=== PATIENT | male | born 1945 | race Caucasian/White ===

== ENCOUNTER 2017-12-24 17:36 | Inpatient (IN) | payer MEDICARE ==
[~2017-12-24] VITALS: Ht 182.9 cm; Wt 82.6 kg
[~2017-12-24 17:36] MED LIST: ABIL5TAB6 PO; ACIP20TA19 PO; AMBI12.5 PO; ASPI81 PO; FELO2.5T PO; HYZA100T6 PO; LOPR50TA12 PO; LOVA40TA PO; PRIS100T PO; TAB-TAB PO; TIMO0.5S29 EACH EYE; TRAZ100 PO; XANA1TAB PO
[2017-12-24 17:40] VITALS: BP 162/86; PULSE 77; RESP 18; TEMP 98.5; O2SAT 94
[2017-12-24] MEDS ORDERED: SODIUM CHLOR 0.9% 1000 ML INJ 1,000 ML IV ONE (17:52)
[2017-12-24] MEDS ORDERED: RABE1TAB PO (17:57)
[2017-12-24] MEDS ORDERED: FLUO20CA12 PO (17:57)
[2017-12-24] MEDS ORDERED: LOSA100T3 PO (17:57)
[2017-12-24] MEDS ORDERED: ATOR10TA15 PO (17:57)
[2017-12-24] MEDS ORDERED: METO50TA PO (17:57)
[2017-12-24] MEDS ORDERED: TIMO0.2517 EACH EYE (17:57)
[2017-12-24] MEDS ORDERED: ASPI81CH6 CHEW (17:57)
[2017-12-24] MEDS ORDERED: FELO5TAB PO (17:57)
[2017-12-24] MEDS ORDERED: SODIUM CHLORIDE 0.9% FLUSH 10 ML FLUSH IVF PRN (18:00)
[2017-12-24] MEDS ORDERED: LORazepam 2 MG/ML VIAL IVS ONE (18:00)
--- NOTE | 2017-12-24 18:08 | PD ---
HPI Chief Complaint: Seizure Time Seen by Provider: 17:52 Travel History International Travel<30 days: No Contact w/Intl Traveler<30days: No Traveled to known affect area: No History of Present Illness HPI 72-year-old male arrives to the ER complaining of seizure. He arrives by EMS. The patient was seen by his on the ground in the house with a grand mal seizure/tonic clonic seizure activity. Patient reports a normal day today however has lately been very inactive. He reports an attempt to stop taking Xanax 0.5 mg twice daily. He has previously attempted the same once with no withdrawal seizure. He reports drinking alcohol typically daily. In the ER he has no chest pain shortness of breath nausea vomiting fever or chills diaphoresis dizziness headache or acute complaint otherwise. PFSH Past Medical History Arthritis: Yes Anxiety: Yes Depression: Yes Cancer: No Cardiac Catheterization: Yes Cardiovascular Problems: No High Cholesterol: Yes Diabetes: No Diminished Hearing: No Endocrine: No Gastrointestinal Disorders: Yes (GERD) GERD: Yes Genitourinary: No Hepatitis: No Hiatal Hernia: No Hypertension: Yes Immune Disorder: No Implanted Vascular Access Dvce: Yes Musculoskeletal: Yes (CHRONIC BACK PAIN) Neurologic: No Psychiatric: Yes (DEPRESSION, ANXIETY) Reproductive: No Respiratory: Yes (sleep apnea, USES CPAP) Sleep Apnea: Yes (CPAP) Thyroid Disease: No Influenza Vaccination: No Past Surgical History Abdominal Surgery: Yes (APPENDECTOMY, INGUINAL HERNIORRHAPHY) AICD: No Appendectomy: Yes Eye Surgery: Yes (MORIAH. RETINAL REPAIR, BILATERAL CATARACT SURGERY) Joint Replacement: Yes (MORIAH. KNEES, RIGHT HIP) Pacemaker: No Tonsillectomy: Yes Other Surgery: Yes Family History Family Hypercholesterolemia: Yes Social History Alcohol Use: Yes ("WEEKENDS") Tobacco Use: No Substance Use: No Allergies-Medications (Allergen,Severity, Reaction): Coded Allergies: adhesive (Unverified Allergy, Severe, BLISTERING, 06/22/17) tree and shrub pollen (Unverified Allergy, Severe, NASAL CONGESTION, ) POLLEN ALLERGY Reported Meds & Prescriptions Reported Meds & Active Scripts Active Reported Timolol Maleate (Timolol Maleate (Ophth)) 0.25 % Romina 1 Drop EACH EYE BID Aspirin Low Dose (Aspirin) 81 Mg Chew 81 Mg CHEW DAILY Felodipine ER (Felodipine) 5 Mg Agapito 5 Mg PO DAILY Rabeprazole (Rabeprazole Sodium) 20 Mg Tab 20 Mg PO DAILY Losartan-Hydrochlorothiazide 100-12.5 Mg Tab 1 Tab PO DAILY Fluoxetine (Fluoxetine HCl) 20 Mg Capsule 20 Mg PO DAILY Metoprolol Tartrate 50 Mg Tab 50 Mg PO BID Atorvastatin (Atorvastatin Calcium) 10 Mg Tab 10 Mg PO HS Review of Systems Except as stated in HPI: all other systems reviewed are Neg General / Constitutional: No: Fever Physical Exam Narrative GENERAL: 72-year-old male pleasant well-nourished well-developed SKIN: Warm and dry. HEAD: Atraumatic. Normocephalic. EYES: Pupils equal and round. No scleral icterus. No injection or drainage. ENT: No nasal bleeding or discharge. Mucous membranes pink and moist. NECK: Trachea midline. No JVD. CARDIOVASCULAR: Regular rate and rhythm. RESPIRATORY: No accessory muscle use. Clear to auscultation. Breath sounds equal bilaterally. GASTROINTESTINAL: Abdomen soft, non-tender, nondistended. Hepatic and splenic margins not palpable. MUSCULOSKELETAL: Extremities without clubbing, cyanosis, or edema. No obvious deformities. NEUROLOGICAL: Patient is AOx3. Speech memory and mentation are normal. Cranial nerves III-XII normal. PSYCHIATRIC: Appropriate mood and affect; insight and judgment normal. Data Data Last Documented VS Vital Signs Date Time Temp Pulse Resp B/P (MAP) Pulse Ox O2 Delivery O2 Flow Rate FiO2 12/24/17 18:10 94 Room Air 12/24/17 17:40 98.5 77 18 162/86 (111) VS reviewed Orders Orders Complete Blood Count With Diff (12/24/17 17:52) Alcohol (Ethanol) (12/24/17 17:52) Drug Screen, Random Urine (12/24/17 17:52) Electrocardiogram (12/24/17 ) Ct Brain W/O Iv Contrast(Rout) (12/24/17 ) Blood Glucose (12/24/17 17:52) Ecg Monitoring (12/24/17 17:52) Iv Access Insert/Monitor (12/24/17 17:52) Oximetry (12/24/17 17:52) Comprehensive Metabolic Panel (12/24/17 17:52) Sodium Chlor 0.9% 1000 Ml Inj (Ns 1000 M (12/24/17 17:52) Sodium Chloride 0.9% Flush (Ns Flush) (12/24/17 18:00) Lorazepam Inj (Ativan Inj) (12/24/17 18:00) Ua Includes Microscopic (12/24/17 17:52) Potassium Chloride (Kcl) (12/24/17 19:00) Labs Laboratory Tests Test 12/24/17 18:00 12/24/17 18:15 White Blood Count 9.1 TH/MM3 Red Blood Count 4.54 MIL/MM3 Hemoglobin 13.6 GM/DL Hematocrit 41.5 % Mean Corpuscular Volume 91.4 FL Mean Corpuscular Hemoglobin 30.1 PG Mean Corpuscular Hemoglobin Concent 32.9 % Red Cell Distribution Width 13.1 % Platelet Count 214 TH/MM3 Mean Platelet Volume 8.1 FL Neutrophils (%) (Auto) 73.0 % Lymphocytes (%) (Auto) 15.7 % Monocytes (%) (Auto) 8.0 % Eosinophils (%) (Auto) 1.3 % Basophils (%) (Auto) 2.0 % Neutrophils # (Auto) 6.7 TH/MM3 Lymphocytes # (Auto) 1.4 TH/MM3 Monocytes # (Auto) 0.7 TH/MM3 Eosinophils # (Auto) 0.1 TH/MM3 Basophils # (Auto) 0.2 TH/MM3 CBC Comment DIFF FINAL Differential Comment Blood Urea Nitrogen 14 MG/DL Creatinine 0.81 MG/DL Random Glucose 123 MG/DL Total Protein 7.6 GM/DL Albumin 3.7 GM/DL Calcium Level 8.0 MG/DL Alkaline Phosphatase 107 U/L Aspartate Amino Transf (AST/SGOT) 45 U/L Alanine Aminotransferase (ALT/SGPT) 26 U/L Total Bilirubin 1.4 MG/DL Sodium Level 127 MEQ/L Potassium Level 1.9 MEQ/L Chloride Level 89 MEQ/L Carbon Dioxide Level 29.0 MEQ/L Anion Gap 9 MEQ/L Estimat Glomerular Filtration Rate 93 ML/MIN Ethyl Alcohol Level LESS THAN 3 MG/DL Urine Color YELLOW Urine Turbidity CLEAR Urine pH 6.5 Urine Specific [place] 1.010 Urine Protein 100 mg/dL Urine Glucose (UA) NEG mg/dL Urine Ketones NEG mg/dL Urine Occult Blood MOD Urine Nitrite NEG Urine Bilirubin NEG Urine Leukocyte Esterase NEG Urine RBC 0-3 /hpf Urine WBC 0-2 /hpf Urine Squamous Epithelial Cells 0-5 /hpf Urine Mucus MOD /lpf Microscopic Urinalysis Comment CULT NOT INDICATED Urine Opiates Screen NEG Urine Barbiturates Screen NEG Urine Amphetamines Screen NEG Urine Benzodiazepines Screen NEG Urine Cocaine Screen NEG Urine Cannabinoids Screen NEG MDM Medical Decision Making Medical Screen Exam Complete: Yes Emergency Medical Condition: Yes Medical Record Reviewed: Yes Differential Diagnosis Seizure, Xanax withdrawal, intracranial hemorrhage, electrolyte imbalance Narrative Course CBC & BMP Diagram 12/24/17 18:00 Total Protein 7.6, Albumin 3.7, Calcium Level 8.0 L, Alkaline Phosphatase 107, Aspartate Amino Transf (AST/SGOT) 45 H, Alanine Aminotransferase (ALT/SGPT) 26, Total Bilirubin 1.4 H Urine drug screen is olivo-negative Ethyl alcohol is less than 3 Urinalysis shows no UTI 60 mEq oral potassium given here. The patient will be admitted for ongoing monitoring and electrolyte replenishment. Milligram of lorazepam was given along with a liter saline. Diagnosis Primary Impression: Seizure Additional Impressions: Hypokalemia Hyponatremia Admitting Information Admitting Physician Requests: Admit Tone Hong MD Dec 24, 2017 18:07
[2017-12-24 18:09] LABS: AUTOMATED NEUTROPHIL # 6.7 TH/MM3 (1.8-7.7); BASOPHIL # 0.2 TH/MM3 (0-0.2); EOSINOPHIL # 0.1 TH/MM3 (0-0.4); EOSINOPHIL % 1.3 % (0.0-4.0); HEMATOCRIT 41.5 % (39.0-51.0); HEMOGLOBIN 13.6 GM/DL (13.0-17.0); LYMPH % 15.7 % (9.0-44.0); LYMPHOCYTE # 1.4 TH/MM3 (1.0-4.8); MEAN CELL VOLUME 91.4 FL (80.0-100.0); MEAN CORPUSCULAR HEMOGLOBIN 30.1 PG (27.0-34.0); MEAN CORPUSCULAR HGB CONC 32.9 % (32.0-36.0); MEAN PLATELET VOLUME 8.1 FL (7.0-11.0); MONOCYTE # 0.7 TH/MM3 (0-0.9); PLATELET COUNT 214 TH/MM3 (150-450); RED BLOOD COUNT 4.54 MIL/MM3 (4.50-5.90); RED CELL DISTRIBUTION WIDTH 13.1 % (11.6-17.2); WHITE BLOOD COUNT 9.1 TH/MM3 (4.0-11.0)
[2017-12-24 18:10] VITALS: O2SAT 94
[2017-12-24 18:23] LABS: BILIRUBIN, URINE NEG (NEG); BLOOD, URINE MOD (NEG); GLUCOSE,URINE NEG (NEG); KETONE, URINE NEG (NEG); NITRITE,URINE NEG (NEG); PH, URINE 6.5 (5.0-8.5); URINE LEUKOCYTE ESTERASE NEG (NEG)
[2017-12-24 18:31] LABS: URINE COLOR YELLOW (YELLW/STRAW)
[2017-12-24 18:32] LABS: MUCUS URINE MOD /lpf (OCC); RBC, URINE 0-3 /hpf (0-3); SQUAMOUS EPITHELIAL CELL URINE 0-5 /hpf (0-5); WBC, URINE 0-2 /hpf (0-5)
[2017-12-24 18:45] LABS: ALBUMIN 3.7 GM/DL (3.4-5.0); ALKALINE PHOSPHATASE 107 U/L (45-117); ALT (GPT) 26 U/L (12-78); AST (GOT) 45 U/L (15-37); BLOOD UREA NITROGEN 14 MG/DL (7-18); CHLORIDE 89 MEQ/L (98-107); CREATININE 0.81 MG/DL (0.60-1.30); GLOMERULAR FILTRATION RATE 93 ML/MIN (>89); GLUCOSE,RANDOM 123 MG/DL (74-106); SODIUM (NA) 127 MEQ/L (136-145); TOTAL BILIRUBIN ADULT 1.4 MG/DL (0.2-1.0); TOTAL PROTEIN 7.6 GM/DL (6.4-8.2)
[2017-12-24] MEDS ORDERED: POTASSIUM CHLORIDE 20 MEQ CONTROLLED RELEASE TAB PO ONE (19:00)
[2017-12-24 19:11] VITALS: BP 155/83; PULSE 72; RESP 18; O2SAT 94
[2017-12-24] MEDS ORDERED: CHLORHEXIDINE GLUCONATE 2 % 1 PACK (2 CLOTHS) TOP PRN (19:15)
[2017-12-24] MEDS ORDERED: FLUMAZENIL 0.5 MG/5 ML VIAL IV PUSH PRN (19:15)
[2017-12-24] MEDS ORDERED: BISACODYL 10 MG SUPP RECTAL PRN (19:15)
[2017-12-24] MEDS ORDERED: MISCELLANEOUS NURSING INFORMATION XX SCH (19:15)
[2017-12-24] MEDS ORDERED: ACETAMINOPHEN/HYDROcodone 325 MG/10 MG TAB PO PRN (19:15)
[2017-12-24] MEDS ORDERED: LORazepam 2 MG/ML VIAL IV PUSH PRN ×3 (19:15)
[2017-12-24] MEDS ORDERED: MAGNESIUM SULFATE INJ 2 GM in SODIUM CHLORIDE 0.9% INJ 96 ML IV PRN (19:15)
[2017-12-24] MEDS ORDERED: POTASSIUM PHOSPHATE MONOBASIC 500 MG TAB PO/TUBE PRN (19:15)
[2017-12-24] MEDS ORDERED: ONDANSETRON HCL 4 MG/2 ML VIAL IVP PRN (19:15)
[2017-12-24] MEDS ORDERED: POTASSIUM PHOSPHATE INJ 30 MMOL in SODIUM CHLOR 0.9% 250 ML INJ 250 ML IV PRN (19:15)
[2017-12-24] MEDS ORDERED: MAGNESIUM HYDROXIDE SUSP 30 ML CUP PO PRN (19:15)
[2017-12-24] MEDS ORDERED: POTASSIUM CHLORIDE 25 MEQ EFFERVESCENT TAB PO PRN (19:15)
[2017-12-24] MEDS ORDERED: POTASSIUM PHOSPHATE MONOBASIC 500 MG TAB PO PRN (19:15)
[2017-12-24] MEDS ORDERED: SODIUM PHOSPHATE INJ 30 MMOL in SODIUM CHLOR 0.9% 250 ML INJ 240 ML IV PRN (19:15)
[2017-12-24] MEDS ORDERED: LORazepam 1 MG TAB PO PRN (19:15)
[2017-12-24] MEDS ORDERED: MAGNESIUM SULFATE INJ 4 GM in SODIUM CHLORIDE 0.9% INJ 92 ML IV PRN (19:15)
[2017-12-24] MEDS ORDERED: LACTULOSE SYRUP 20 GM/30 ML CUP PO PRN (19:15)
[2017-12-24] MEDS ORDERED: SODIUM CHLORIDE 0.9% FLUSH 10 ML FLUSH IV FLUSH PRN (19:15)
[2017-12-24] MEDS ORDERED: POTASSIUM CHLOR 20 MEQ PREMIX 100 ML IV PRN (19:15)
[2017-12-24] MEDS ORDERED: MAGNESIUM SULFATE 1 GM PREMIX 100 ML IV ONE (19:15)
[2017-12-24] MEDS ORDERED: MAGNESIUM OXIDE 400 MG TAB PO PRN (19:15)
[2017-12-24] MEDS ORDERED: POTASSIUM CHLOR 40 MEQ PREMIX 100 ML IV PRN ×2 (19:15)
[2017-12-24] MEDS ORDERED: ACETAMINOPHEN 325 MG TAB PO PRN (19:15)
[2017-12-24] MEDS ORDERED: LORazepam 2 MG TAB PO PRN (19:15)
[2017-12-24] MEDS ORDERED: SENNOSIDES 8.6 MG TAB PO PRN (19:15)
[2017-12-24] MEDS ORDERED: POTASSIUM CHLOR 20 MEQ PREMIX 100 ML IV ONE (19:30)
[2017-12-24 19:40] LABS: PHOSPHORUS 2.3 MG/DL (2.5-4.9)
[2017-12-24] MEDS: SODIUM CHLOR 0.9% 1000 ML INJ 1,000 ML IV SCH (19:44)
--- NOTE | 2017-12-24 20:04 | RADRPT ---
EXAM DATE/TIME: 12/24/2017 19:24 [place] COMPARISON: No previous studies available for comparison. INDICATIONS : Altered mental status. Seizures. RADIATION DOSE: 62.42 CTDIvol (mGy) MEDICAL HISTORY : Cardiovascular disease. Hypertension. Gastroesophageal reflux disease. SURGICAL HISTORY : Appendectomy. Inguinal hernia repair. ENCOUNTER: Initial ACUITY: 1 day PAIN SCALE: 0/10 LOCATION: cranial TECHNIQUE: Multiple contiguous axial images were obtained of the head. Using automated exposure control and adj ustment of the mA and/or kV according to patient size, radiation dose was kept as low as reasonably a chievable to obtain optimal diagnostic quality images. DICOM format image data is available electro nically for review and comparison. FINDINGS: CEREBRUM: The ventricles are normal for age. No evidence of midline shift, mass lesion, hemorrhage or acute in farction. No extra-axial fluid collections are seen. POSTERIOR FOSSA: The cerebellum and brainstem are intact. The 4th ventricle is midline. The cerebellopontine angle i s unremarkable. EXTRACRANIAL: The visualized portion of the orbits is intact. SKULL: The calvaria is intact. No evidence of skull fracture. CONCLUSION: 1. No acute intracranial abnormalities. Willard Tang MD on December 24, 2017 at 20:00 Board Certified Radiologist. This report was verified electronically.
[2017-12-24 21:00] VITALS: BP 132/70; PULSE 82; RESP 24; TEMP 98.7; O2SAT 94
[2017-12-24] MEDS: DOCUSATE SODIUM 50 MG/SENNA 8.6 MG TAB PO SCH (21:00)
[2017-12-24] MEDS: SODIUM CHLORIDE 0.9% FLUSH 10 ML FLUSH IV FLUSH SCH (21:00)
[2017-12-24] MEDS ORDERED: THIAMINE INJ 100 MG in SODIUM CHLORIDE 0.9% INJ 100 ML IV ONE (21:00)
[2017-12-24 22:00] VITALS: PULSE 82
[2017-12-24] MEDS: LORazepam 2 MG/ML VIAL IV PUSH PRN (23:26)
[2017-12-25] VITALS (19 sets, daily range): BP systolic 133–160; BP diastolic 68–95; PULSE 66–88; RESP 17–29; TEMP 98–98.7; O2SAT 92–96
[2017-12-25 00:33] LABS: MAGNESIUM 2.3 MG/DL (1.5-2.5)
[2017-12-25] MEDS: POTASSIUM CHLOR 20 MEQ PREMIX 100 ML IV PRN ×8 (00:59→20:01)
[2017-12-25] MEDS: LORazepam 2 MG/ML VIAL IV PUSH PRN (02:05)
[2017-12-25] MEDS: HALOPERIDOL LACTATE 5 MG/ML AMP IM PRN ×2 (02:59→04:38)
[2017-12-25] MEDS: CHLORHEXIDINE GLUCONATE 2 % 1 PACK (2 CLOTHS) TOP SCH (04:00)
[2017-12-25] MEDS: SODIUM CHLOR 0.9% 1000 ML INJ 1,000 ML IV SCH (04:08)
[2017-12-25 06:22] LABS: AUTOMATED NEUTROPHIL # 8.9 TH/MM3 (1.8-7.7); BASOPHIL % 0.3 % (0.0-2.0); EOSINOPHIL # 0.1 TH/MM3 (0-0.4); EOSINOPHIL % 1.2 % (0.0-4.0); HEMATOCRIT 36.8 % (39.0-51.0); HEMOGLOBIN 12.6 GM/DL (13.0-17.0); LYMPH % 8.5 % (9.0-44.0); LYMPHOCYTE # 0.9 TH/MM3 (1.0-4.8); MEAN CELL VOLUME 91.8 FL (80.0-100.0); MEAN CORPUSCULAR HEMOGLOBIN 31.4 PG (27.0-34.0); MEAN CORPUSCULAR HGB CONC 34.2 % (32.0-36.0); MEAN PLATELET VOLUME 8.8 FL (7.0-11.0); MONO % 6.1 % (0.0-8.0); MONOCYTE # 0.6 TH/MM3 (0-0.9); NEUT % 83.9 % (16.0-70.0); PLATELET COUNT 151 TH/MM3 (150-450); RED BLOOD COUNT 4.01 MIL/MM3 (4.50-5.90); WHITE BLOOD COUNT 10.6 TH/MM3 (4.0-11.0)
[2017-12-25 06:42] LABS: ALBUMIN 3.3 GM/DL (3.4-5.0); ALKALINE PHOSPHATASE 87 U/L (45-117); ALT (GPT) 25 U/L (12-78); AST (GOT) 62 U/L (15-37); BICARBONATE 27.5 MEQ/L (21.0-32.0); BLOOD UREA NITROGEN 9 MG/DL (7-18); CALCIUM 7.5 MG/DL (8.5-10.1); CHLORIDE 101 MEQ/L (98-107); GLOMERULAR FILTRATION RATE 132 ML/MIN (>89); GLUCOSE,RANDOM 93 MG/DL (74-106); MAGNESIUM 2.3 MG/DL (1.5-2.5); SODIUM (NA) 136 MEQ/L (136-145); TOTAL BILIRUBIN ADULT 1.6 MG/DL (0.2-1.0); TOTAL PROTEIN 6.5 GM/DL (6.4-8.2)
[2017-12-25] MEDS: NS + KCL 20 MEQ INJ 1,000 ML IV SCH ×2 (08:42→19:00)
[2017-12-25] MEDS: SODIUM CHLORIDE 0.9% FLUSH 10 ML FLUSH IV FLUSH SCH ×2 (08:43→20:22)
[2017-12-25] MEDS: DOCUSATE SODIUM 50 MG/SENNA 8.6 MG TAB PO SCH ×2 (08:43→19:55)
[2017-12-25] MEDS: FOLIC ACID 1 MG TAB PO SCH (08:43)
[2017-12-25] MEDS ORDERED: THIAMINE HCL 100 MG TAB PO SCH (09:00)
[2017-12-25] MEDS ORDERED: MULTIVITAMINS/MINERALS THERAPEUTIC TAB PO SCH (09:00)
--- NOTE | 2017-12-25 12:29 | HHI.HP ---
[facility] Service [facility] Primary Care Physician Brent Green MD Admission Diagnosis HypoK; HypoNa; Seizure Diagnoses: Chief Complaint: Seizure Travel History International Travel<30 Days: No Contact w/Intl Traveler <30 Da: No Traveled to Known Affected Are: No History of Present Illness This patient is a 72-year-old gentleman with a known history of alcohol dependency who recently increase his alcohol intake and suddenly discontinued alcohol in the last 4 days. He also was on Xanax which she discontinued abruptly as well. He presented to the emergency room with acute witnessed seizure. His reports that she saw him being normal and then became altered in status and had seizure activities including tonic-clonic motions described. Patient does not remember the event. He did come to the emergency room and was evaluated for these issues. CT of the head was unremarkable. Patient is also profoundly hyponatremic and hypokalemic. He is admitted to the hospital for these issues. Review of Systems Constitutional: DENIES: Diaphoretic episodes, Fatigue, Fever, Weight gain, Weight loss, Chills, Dizziness, Change in appetite, Night Sweats Endocrine: DENIES: Heat/cold intolerance, Polydipsia, Polyuria, Polyphagia Ears, nose, mouth, throat: DENIES: Tinnitus, Hearing loss, Vertigo, Nasal discharge, Oral lesions, Throat pain, Hoarseness, Ear Pain, Running Nose, Epistaxis, Sinus Pain, Toothache, Odynophagia Cardiovascular: DENIES: Chest pain, Palpitations, Syncope, Dyspnea on Exertion , PND, Lower Extremity Edema, Orthopnea, Claudication Gastrointestinal: DENIES: Abdominal pain, Black stools, Bloody stools, Constipation, Diarrhea, Nausea, Vomiting, Difficulty Swallowing, Anorexia Genitourinary: DENIES: Sexual dysfunction, Urinary frequency, Urinary incontinence, Urgency, Hematuria, Dysuria, Nocturia, Penile Discharge, Testicular Pain, Testicular Swelling Musculoskeletal: DENIES: Joint pain, Muscle aches, Stiffness, Joint Swelling, Back pain, Neck pain Hematologic/lymphatic: DENIES: Bruising, Lymphadenopathy Immunologic/allergic: DENIES: Eczema, Urticaria Neurologic: COMPLAINS OF: Seizures, DENIES: Abnormal gait, Headache, Localized weakness, Paresthesias, Speech Problems, Tremor, Poor Balance Psychiatric: COMPLAINS OF: Anxiety, Confusion, DENIES: Mood changes, Depression , Hallucinations, Agitation, Suicidal Ideation, Homicidal Ideation, Delusions Except as stated in HPI: all other systems reviewed are Neg Past Family Social History Past Medical History Alcohol dependency Depression/anxiety Cataracts Hypertension Gastric ulcer disease Past Surgical History Bilateral knee replacement, right hip replacement, shoulder surgery Bilateral retinal repair Cataract surgery Appendectomy Inguinal hernia Reported Medications Reviewed in the EMR, also takes Xanax Allergies: Coded Allergies: adhesive (Unverified Allergy, Severe, BLISTERING, 06/22/17) tree and shrub pollen (Unverified Allergy, Severe, NASAL CONGESTION, ) POLLEN ALLERGY Active Ordered Medications Reviewed in the EMR Family History Mother and father both in her 90s from congestive heart failure complications Social History Result from [place], , no tobacco, drink binge behavior weekends until recently and then began drinking daily. Physical Exam Vital Signs Vital Signs Date Time Temp Pulse Resp B/P (MAP) Pulse Ox O2 Delivery O2 Flow Rate FiO2 12/25/17 11:00 78 23 138/79 (98) 92 12/25/17 10:00 81 12/25/17 10:00 81 21 134/79 (97) 94 12/25/17 09:21 93 Room Air 12/25/17 09:00 66 21 140/85 (103) 92 12/25/17 08:00 98.4 80 18 140/87 (104) 96 12/25/17 08:00 76 12/25/17 07:00 70 17 160/84 (109) 96 12/25/17 04:00 98.4 74 25 144/86 (105) 94 12/25/17 04:00 74 12/25/17 00:00 98.7 78 29 139/87 (104) 93 12/25/17 00:00 78 12/24/17 22:00 82 12/24/17 21:16 12/24/17 21:00 98.7 82 24 132/70 (90) 94 12/24/17 19:11 72 18 155/83 (107) 94 Room Air 12/24/17 18:10 94 Room Air 12/24/17 17:40 98.5 77 18 162/86 (111) 94 Physical Exam GENERAL: This is a well-nourished, well-developed patient, in no apparent distress. SKIN: No rashes, ecchymoses or lesions. Cool and dry. HEAD: Atraumatic. Normocephalic. No temporal or scalp tenderness. EYES: Pupils equal round and reactive. Extraocular motions intact. No scleral icterus. No injection or drainage. ENT: Nose without bleeding, purulent drainage or septal hematoma. Throat without erythema, tonsillar hypertrophy or exudate. Uvula midline. Airway patent. NECK: Trachea midline. No JVD or lymphadenopathy. Supple, nontender, no meningeal signs. CARDIOVASCULAR: Regular rate and rhythm without murmurs, gallops, or rubs. RESPIRATORY: Clear to auscultation. Breath sounds equal bilaterally. No wheezes , rales, or rhonchi. GASTROINTESTINAL: Abdomen soft, non-tender, nondistended. No hepato-splenomegaly , or palpable masses. No guarding. MUSCULOSKELETAL: Extremities without clubbing, cyanosis, or edema. No joint tenderness, effusion, or edema noted. No calf tenderness. Negative Homans sign bilaterally. NEUROLOGICAL: Awake and alert. Cranial nerves II through XII intact. Motor and sensory grossly within normal limits. Five out of 5 muscle strength in all muscle groups. Normal speech. Laboratory Laboratory Tests Test 12/24/17 18:00 12/24/17 18:15 12/25/17 00:00 12/25/17 04:33 White Blood Count 9.1 Red Blood Count 4.54 Hemoglobin 13.6 Hematocrit 41.5 Mean Corpuscular Volume 91.4 Mean Corpuscular Hemoglobin 30.1 Mean Corpuscular Hemoglobin Concent 32.9 Red Cell Distribution Width 13.1 Platelet Count 214 Mean Platelet Volume 8.1 Neutrophils (%) (Auto) 73.0 Lymphocytes (%) (Auto) 15.7 Monocytes (%) (Auto) 8.0 Eosinophils (%) (Auto) 1.3 Basophils (%) (Auto) 2.0 Neutrophils # (Auto) 6.7 Lymphocytes # (Auto) 1.4 Monocytes # (Auto) 0.7 Eosinophils # (Auto) 0.1 Basophils # (Auto) 0.2 CBC Comment DIFF FINAL Differential Comment Blood Urea Nitrogen 14 Creatinine 0.81 Random Glucose 123 Total Protein 7.6 Albumin 3.7 Calcium Level 8.0 Phosphorus Level 2.3 Magnesium Level 2.0 2.3 Alkaline Phosphatase 107 Aspartate Amino Transf (AST/SGOT) 45 Alanine Aminotransferase (ALT/SGPT) 26 Total Bilirubin 1.4 Sodium Level 127 Potassium Level 1.9 2.1 Chloride Level 89 Carbon Dioxide Level 29.0 Anion Gap 9 Estimat Glomerular Filtration Rate 93 Ethyl Alcohol Level LESS THAN 3 Urine Color YELLOW Urine Turbidity CLEAR Urine pH 6.5 Urine Specific [place] 1.010 Urine Protein 100 Urine Glucose (UA) NEG Urine Ketones NEG Urine Occult Blood MOD Urine Nitrite NEG Urine Bilirubin NEG Urine Leukocyte Esterase NEG Urine RBC 0-3 Urine WBC 0-2 Urine Squamous Epithelial Cells 0-5 Urine Mucus MOD Microscopic Urinalysis Comment CULT NOT INDICATED Urine Opiates Screen NEG Urine Barbiturates Screen NEG Urine Amphetamines Screen NEG Urine Benzodiazepines Screen NEG Urine Cocaine Screen NEG Urine Cannabinoids Screen NEG Test 12/25/17 05:45 12/25/17 12:00 White Blood Count 10.6 Red Blood Count 4.01 Hemoglobin 12.6 Hematocrit 36.8 Mean Corpuscular Volume 91.8 Mean Corpuscular Hemoglobin 31.4 Mean Corpuscular Hemoglobin Concent 34.2 Red Cell Distribution Width 13.0 Platelet Count 151 Mean Platelet Volume 8.8 Neutrophils (%) (Auto) 83.9 Lymphocytes (%) (Auto) 8.5 Monocytes (%) (Auto) 6.1 Eosinophils (%) (Auto) 1.2 Basophils (%) (Auto) 0.3 Neutrophils # (Auto) 8.9 Lymphocytes # (Auto) 0.9 Monocytes # (Auto) 0.6 Eosinophils # (Auto) 0.1 Basophils # (Auto) 0.0 CBC Comment DIFF FINAL Differential Comment Blood Urea Nitrogen 9 Creatinine 0.60 Random Glucose 93 Total Protein 6.5 Albumin 3.3 Calcium Level 7.5 Magnesium Level 2.3 Alkaline Phosphatase 87 Aspartate Amino Transf (AST/SGOT) 62 Alanine Aminotransferase (ALT/SGPT) 25 Total Bilirubin 1.6 Sodium Level 136 Potassium Level 2.5 Chloride Level 101 Carbon Dioxide Level 27.5 Anion Gap 8 Estimat Glomerular Filtration Rate 132 Result Diagram: 12/25/17 0545 12/25/17 0545 Imaging Last Impressions Head CT 12/24/17 0000 Signed Impressions: Service Date/Time: Sunday, December 24, 2017 19:24 - CONCLUSION: 1. No acute intracranial abnormalities. MD Irma Flannery VTE Risk Assessment Irma VTE Risk Assessment: No/Low Risk (score <= 1) Alrini Risk Assessment Model Point Value = 1 Point Value = 2 Point Value = 3 Point Value = 5 Age 41-60 Minor surgery BMI > 25 kg/m2 Swollen legs Varicose veins or History of unexplained or recurrent spontaneous Oral contraceptives or hormone replacement Sepsis (< 1 month) Serious lung disease, including pneumonia (< 1 month) Abnormal pulmonary function Acute myocardial infarction Congestive heart failure (< 1 month) History of inflammatory bowel disease Medical patient at bed rest Age 61-74 Arthroscopic surgery Major open surgery (> 45 min) Laparoscopic surgery (> 45 min) Malignancy Confined to bed (> 72 hours) Immobilizing plaster cast Central venous access Age >= 75 History of VTE Family history of VTE Factor V Leiden Prothrombin [id number] Lupus anticoagulant Anticardiolipin antibodies Elevated serum homocysteine Heparin-induced thrombocytopenia Other congenital or acquired thrombophilia Stroke (< 1 month) Elective arthroplasty Hip, pelvis, or leg fracture Acute spinal cord injury (< 1 month) Prophylaxis Regimen Total Risk Factor Score Risk Level Prophylaxis Regimen 0-1 Low Early ambulation 2 Moderate Order ONE of the following: *Sequential Compression Device (SCD) *Heparin 5000 units SQ BID 3-4 Higher Order ONE of the following medications: *Heparin 5000 units SQ TID *Enoxaparin/Lovenox 40 mg SQ daily (WT < 150 kg, CrCl > 30 mL/min) *Enoxaparin/Lovenox 30 mg SQ daily (WT < 150 kg, CrCl > 10-29 mL/min) *Enoxaparin/Lovenox 30 mg SQ BID (WT < 150 kg, CrCl > 30 mL/min) AND/OR *Sequential Compression Device (SCD) 5 or more Highest Order ONE of the following medications: *Heparin 5000 units SQ TID (Preferred with Epidurals) *Enoxaparin/Lovenox 40 mg SQ daily (WT < 150 kg, CrCl > 30 mL/min) *Enoxaparin/Lovenox 30 mg SQ daily (WT < 150 kg, CrCl > 10-29 mL/min) *Enoxaparin/Lovenox 30 mg SQ BID (WT < 150 kg, CrCl > 30 mL/min) AND *Sequential Compression Device (SCD) Assessment and Plan Problem List: (1) Hyponatremia ICD Code: E87.1 - Hypo-osmolality and hyponatremia Status: Acute Plan: Improved overnight with IV hydration, likely due to malnutrition (2) Seizure ICD Code: R56.9 - Unspecified convulsions Status: Acute Plan: Dependence with sudden discontinuation. Patient will continue with Librium CIWA protocol Discussed with patient and family regarding outpatient services for alcohol dependence (3) Hypokalemia ICD Code: E87.6 - Hypokalemia Status: Acute Plan: Continue replacement, follow-up later today and in a.m. Assessment and Plan Likely discharge in a.m. 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 In the case of services not specified as inpatient-only, they are appropriately provided as inpatient services in accordance with the 2-midnight benchmark. Estimated LOS (days): 2 2 days is the estimated time the patient will need to remain in the hospital, assuming treatment plan goals are met and no additional complications. Post-Hospital Plan: Home Any Brooks MD Dec 25, 2017 12:28
[2017-12-25 12:44] LABS: MAGNESIUM 2.2 MG/DL (1.5-2.5)
[2017-12-25] MEDS: FLUoxetine HCL 20 MG CAP PO SCH (13:40)
[2017-12-25] MEDS: amLODIPine BESYLATE 5 MG TAB PO SCH (13:40)
[2017-12-25] MEDS: ASPIRIN 81 MG CHEW TAB CHEW SCH (13:40)
[2017-12-25] MEDS: METOPROLOL TARTRATE 50 MG TAB PO SCH ×2 (13:40→19:56)
[2017-12-25] MEDS: ACETAMINOPHEN/HYDROcodone 325 MG/5 MG TAB PO PRN ×2 (14:08→19:54)
[2017-12-25] MEDS: TIMOLOL MALEATE 0.25% OPHT SOLN 5 ML BTL EACH EYE SCH (19:54)
[2017-12-25] MEDS: ATORVASTATIN 10 MG TAB PO SCH (19:55)
[2017-12-26] VITALS (30 sets, daily range): BP systolic 114–197; BP diastolic 59–104; PULSE 62–106; RESP 16–28; TEMP 97.3–99.1; O2SAT 94–98
[2017-12-26] MEDS: CHLORHEXIDINE GLUCONATE 2 % 1 PACK (2 CLOTHS) TOP SCH ×2 (02:10→23:39)
[2017-12-26 02:15] LABS: PHOSPHORUS 1.7 MG/DL (2.5-4.9)
[2017-12-26] MEDS: LORazepam 2 MG/ML VIAL IV PUSH PRN ×5 (04:07→15:18)
[2017-12-26] MEDS: NS + KCL 20 MEQ INJ 1,000 ML IV SCH (04:08)
[2017-12-26] MEDS: HALOPERIDOL LACTATE 5 MG/ML AMP IM PRN ×3 (05:12→08:45)
[2017-12-26] MEDS ORDERED: POTASSIUM CHLORIDE 20 MEQ CONTROLLED RELEASE TAB PO ONE (05:15)
--- NOTE | 2017-12-26 08:44 | HHI.PR ---
Subjective Remarks Patient seen and evaluated in follow-up for acute alcohol withdrawal with delirium tremens including elevated blood pressures, tactile and visual hallucinations and agitation. Patient's electrolytes are abnormal. He has been requiring restraints overnight Objective Vitals Vital Signs Date Time Temp Pulse Resp B/P (MAP) Pulse Ox O2 Delivery O2 Flow Rate FiO2 12/26/17 06:20 68 12/26/17 06:00 88 24 156/84 (108) 94 12/26/17 05:30 78 24 154/92 (112) 94 12/26/17 05:00 98 26 176/97 (123) 94 12/26/17 04:45 98 24 168/90 (116) 94 12/26/17 04:32 77 12/26/17 04:15 98.2 76 18 150/87 (108) 95 12/26/17 03:00 98.4 72 18 159/82 (107) 95 12/26/17 02:00 72 18 153/81 (105) 12/26/17 02:00 78 12/26/17 01:30 80 20 155/80 (105) 12/26/17 01:00 80 20 180/98 (125) 12/26/17 00:00 74 12/26/17 00:00 99.1 74 20 149/82 (104) 95 12/25/17 22:39 74 20 155/89 (111) 12/25/17 22:00 74 12/25/17 21:00 76 24 160/93 (115) 12/25/17 20:00 98.3 78 26 146/90 (108) 12/25/17 20:00 95 Room Air 12/25/17 20:00 81 12/25/17 19:00 82 22 150/83 (105) 96 12/25/17 18:00 88 22 146/90 (108) 12/25/17 18:00 88 12/25/17 17:00 74 22 144/77 (99) 96 12/25/17 16:00 72 12/25/17 16:00 98.0 72 21 143/76 (98) 94 12/25/17 15:00 72 23 140/80 (100) 96 12/25/17 14:00 72 12/25/17 14:00 80 27 148/95 (112) 94 12/25/17 13:00 78 23 133/71 (91) 96 12/25/17 12:00 98.2 80 22 134/68 (90) 96 12/25/17 12:00 80 12/25/17 11:00 78 23 138/79 (98) 92 12/25/17 10:00 81 12/25/17 10:00 81 21 134/79 (97) 94 12/25/17 09:21 93 Room Air 12/25/17 09:00 66 21 140/85 (103) 92 I/O 12/25/17 12/25/17 12/25/17 12/26/17 12/26/17 12/26/17 07:00 15:00 23:00 07:00 15:00 23:00 Intake Total 1500 ml 341 ml 2200 ml 1860 ml Output Total 850 ml 1200 ml 3400 ml Balance 650 ml 341 ml 1000 ml -1540 ml Intake Oral 800 ml 500 ml IV Total 1500 ml 341 ml 1400 ml 1360 ml Output Urine Total 850 ml 1200 ml 3400 ml # Bowel Movements 0 0 Result Diagram: 12/25/17 0545 12/26/17 0157 Imaging Last Impressions Head CT 12/24/17 0000 Signed Impressions: Service Date/Time: Sunday, December 24, 2017 19:24 - CONCLUSION: 1. No acute intracranial abnormalities. Willard Tang MD Objective Remarks GENERAL: This is a well-nourished, well-developed patient, confused, on restraints CARDIOVASCULAR: Regular rate and rhythm without murmurs, gallops, or rubs. RESPIRATORY: Clear to auscultation. Breath sounds equal bilaterally. No wheezes , rales, or rhonchi. GASTROINTESTINAL: Abdomen soft, non-tender, nondistended. Normal active bowel sounds MUSCULOSKELETAL: Extremities without clubbing, cyanosis, or edema. NEURO: Oriented to person, moving all 4 extremities A/P Problem List: (1) Hyponatremia ICD Code: E87.1 - Hypo-osmolality and hyponatremia Status: Acute Plan: Resolved (2) Seizure ICD Code: R56.9 - Unspecified convulsions Status: Acute Plan: Secondary to Alcohol, Xanax Dependence with sudden discontinuation. Patient will continue with Librium 3 times a day CIWA protocol Discussed with patient and family regarding outpatient services for alcohol dependence (3) Alcohol withdrawal delirium ICD Code: F10.231 - Alcohol dependence with withdrawal delirium Plan: Continue with CIWA protocol, Librium 3 times a day Restraints as needed electrolyte correction for hypokalemia and hypophosphatemia Discharge Planning Pending improvement of symptoms Any Brooks MD Dec 26, 2017 08:44
[2017-12-26] MEDS ORDERED: ENALAPRILAT 1.25 MG/ML VIAL IV PUSH PRN (08:45)
[2017-12-26] MEDS: PANTOPRAZOLE SOD 20 MG DELAYED RELEASE TAB PO SCH (09:00)
[2017-12-26] MEDS: LOSARTAN 50 MG TAB PO SCH (09:00)
[2017-12-26] MEDS ORDERED: NON-FORMULARY DRUG (Losartan-Hydrochlorothiazide 1 TAB) PO SCH (09:00)
[2017-12-26] MEDS: FLUoxetine HCL 20 MG CAP PO SCH (09:00)
[2017-12-26] MEDS: DOCUSATE SODIUM 50 MG/SENNA 8.6 MG TAB PO SCH ×2 (09:00→19:21)
[2017-12-26] MEDS: [UNRECOGNIZED DRUG - OTHER] IV SCH ×2 (10:07→22:56)
[2017-12-26] MEDS: THIAMINE IV SCH ×2 (10:07→22:56)
[2017-12-26] MEDS: POTASSIUM CHLORIDE IV SCH ×2 (10:07→22:56)
[2017-12-26] MEDS: MULTIVITAMIN IV SCH ×2 (10:07→22:56)
[2017-12-26] MEDS: chlordiazePOXIDE 25 MG CAP PO SCH ×3 (10:10→18:21)
[2017-12-26] MEDS: ACETAMINOPHEN/HYDROcodone 325 MG/5 MG TAB PO PRN (12:20)
[2017-12-26] MEDS: TIMOLOL MALEATE 0.25% OPHT SOLN 5 ML BTL EACH EYE SCH ×2 (12:21→19:21)
[2017-12-26] MEDS: amLODIPine BESYLATE 5 MG TAB PO SCH (12:21)
[2017-12-26] MEDS: HYDROCHLOROTHIAZIDE 12.5 MG CAP PO SCH (12:22)
[2017-12-26] MEDS: ASPIRIN 81 MG CHEW TAB CHEW SCH (12:23)
[2017-12-26] MEDS: FOLIC ACID 1 MG TAB PO SCH (12:25)
[2017-12-26] MEDS: SODIUM CHLORIDE 0.9% FLUSH 10 ML FLUSH IV FLUSH SCH ×2 (12:25→19:14)
[2017-12-26] MEDS: POTASSIUM PHOSPHATE MONOBASIC 500 MG TAB PO SCH ×2 (12:29→19:22)
[2017-12-26] MEDS: METOPROLOL TARTRATE 50 MG TAB PO SCH ×2 (12:29→20:09)
[2017-12-26 12:34] LABS: BICARBONATE 26.7 MEQ/L (21.0-32.0)
[2017-12-26 12:37] LABS: CREATININE 0.46 MG/DL (0.60-1.30)
[2017-12-26 13:15] LABS: PHOSPHORUS 2.7 MG/DL (2.5-4.9)
--- NOTE | 2017-12-26 15:09 | EKG ---
Date Performed: 12/24/2017 Time Performed: 18:38:42 PTAGE: 72 years EKG: Sinus rhythm WITH OCCASIONAL VENTRICULAR PREMATURE COMPLEXES WITH OCCASIONAL SUPRAVENTRICULAR PREMATURE COMPLEXES INCOMPLETE RIGHT BUNDLE BRANCH BLOCK NONSPECIFIC ST & T-WAVE ABNORMALITY BORDERLINE ECG Short correc navid QT interval noted PREVIOUS TRACING : 02/20/2015 10.47 DOCTOR: Lance Rodrigues Interpretating Date/Time 12/26/2017 15:08:14
[2017-12-26] MEDS: ATORVASTATIN 10 MG TAB PO SCH (19:21)
[2017-12-27] VITALS (11 sets, daily range): BP systolic 127–158; BP diastolic 63–86; PULSE 66–90; RESP 15–22; TEMP 97.7–98.4; O2SAT 93–96
[2017-12-27 05:24] LABS: CALCIUM 7.8 MG/DL (8.5-10.1)
[2017-12-27 05:25] LABS: BICARBONATE 24.6 MEQ/L (21.0-32.0)
[2017-12-27 05:28] LABS: CREATININE 0.44 MG/DL (0.60-1.30); PHOSPHORUS 2.5 MG/DL (2.5-4.9)
[2017-12-27] MEDS: POTASSIUM CHLOR 20 MEQ PREMIX 100 ML IV PRN (06:21)
[2017-12-27] MEDS: amLODIPine BESYLATE 5 MG TAB PO SCH (09:00)
[2017-12-27] MEDS: DOCUSATE SODIUM 50 MG/SENNA 8.6 MG TAB PO SCH (09:00)
[2017-12-27] MEDS ORDERED: POTASSIUM CHLORIDE 10 MEQ CONTROLLED RELEASE TAB PO ONE (09:00)
[2017-12-27] MEDS: LOSARTAN 50 MG TAB PO SCH (09:18)
[2017-12-27] MEDS: chlordiazePOXIDE 25 MG CAP PO SCH (09:19)
[2017-12-27] MEDS: POTASSIUM PHOSPHATE MONOBASIC 500 MG TAB PO SCH (09:19)
[2017-12-27] MEDS: FLUoxetine HCL 20 MG CAP PO SCH (09:19)
[2017-12-27] MEDS: PANTOPRAZOLE SOD 20 MG DELAYED RELEASE TAB PO SCH (09:20)
[2017-12-27] MEDS: ASPIRIN 81 MG CHEW TAB CHEW SCH (09:20)
[2017-12-27] MEDS: METOPROLOL TARTRATE 50 MG TAB PO SCH (09:20)
[2017-12-27] MEDS: FOLIC ACID 1 MG TAB PO SCH (09:20)
[2017-12-27] MEDS: HYDROCHLOROTHIAZIDE 12.5 MG CAP PO SCH (09:20)
[2017-12-27] MEDS: TIMOLOL MALEATE 0.25% OPHT SOLN 5 ML BTL EACH EYE SCH (09:21)
[2017-12-27] MEDS: SODIUM CHLORIDE 0.9% FLUSH 10 ML FLUSH IV FLUSH SCH (09:22)
[2017-12-27] MEDS ORDERED: POTASSIUM CHLORIDE IV SCH (12:00)
[2017-12-27] MEDS ORDERED: THIAMINE IV SCH (12:00)
[2017-12-27] MEDS ORDERED: [UNRECOGNIZED DRUG - OTHER] IV SCH (12:00)
[2017-12-27] MEDS ORDERED: MULTIVITAMIN IV SCH (12:00)
[2017-12-27] MEDS ORDERED: CHLO25CA9 PO (12:10)
[2017-12-27] MEDS ORDERED: MULTTAB67 PO (12:10)
[2017-12-27] MEDS ORDERED: POTA10TA2 PO (12:10)
--- NOTE | 2017-12-27 12:10 | HHI.DCPOC ---
Discharge Care Plan Diagnosis: (1) Alcohol withdrawal delirium (2) Seizure (3) Hyponatremia (4) Hypokalemia Goals to Promote Your Health * To prevent worsening of your condition and complications * To maintain your health at the optimal level Directions to Meet Your Goals Take your medications as prescribed Follow your dietary instruction Follow activity as directed Keep your appointments as scheduled Take your immunizations and boosters as scheduled If your symptoms worsen call your PCP, if no PCP go to Urgent Care Center or Emergency Room Smoking is Dangerous to Your Health. Avoid second hand smoke Call the 24-hour hour crisis hotline for domestic abuse at Any Brooks MD Dec 27, 2017 12:10
--- NOTE | 2017-12-27 12:13 | HHI.DS ---
Discharge Summary Admission Date Dec 24, 2017 at 19:14 Discharge Date: Dec 27, 2017 Admitting Diagnosis HypoK; HypoNa; Seizure (1) Hyponatremia ICD Code: E87.1 - Hypo-osmolality and hyponatremia Status: Acute (2) Seizure ICD Code: R56.9 - Unspecified convulsions Status: Acute (3) Alcohol withdrawal delirium ICD Code: F10.231 - Alcohol dependence with withdrawal delirium Procedures None Brief History - From Admission This patient is a 72-year-old gentleman with a known history of alcohol dependency who recently increase his alcohol intake and suddenly discontinued alcohol in the last 4 days. He also was on Xanax which she discontinued abruptly as well. He presented to the emergency room with acute witnessed seizure. His reports that she saw him being normal and then became altered in status and had seizure activities including tonic-clonic motions described. Patient does not remember the event. He did come to the emergency room and was evaluated for these issues. CT of the head was unremarkable. Patient is also profoundly hyponatremic and hypokalemic. He is admitted to the hospital for these issues. CBC/BMP: 12/25/17 0545 12/27/17 0427 Significant Findings Laboratory Tests Test 12/24/17 18:00 12/24/17 18:15 12/25/17 00:00 12/25/17 04:33 Neutrophils (%) (Auto) 73.0 % (16.0-70.0) Random Glucose 123 MG/DL (74-106) Calcium Level 8.0 MG/DL (8.5-10.1) Phosphorus Level 2.3 MG/DL (2.5-4.9) Aspartate Amino Transf (AST/SGOT) 45 U/L (15-37) Total Bilirubin 1.4 MG/DL (0.2-1.0) Sodium Level 127 MEQ/L (136-145) Potassium Level 1.9 MEQ/L (3.5-5.1) 2.1 MEQ/L (3.5-5.1) Chloride Level 89 MEQ/L (98-107) Urine Protein 100 mg/dL (NEG-TRACE) Urine Occult Blood MOD (NEG) Urine Mucus MOD /lpf (OCC) Test 12/25/17 05:45 12/25/17 12:00 12/26/17 01:57 12/26/17 12:12 Red Blood Count 4.01 MIL/MM3 (4.50-5.90) Hemoglobin 12.6 GM/DL (13.0-17.0) Hematocrit 36.8 % (39.0-51.0) Neutrophils (%) (Auto) 83.9 % (16.0-70.0) Lymphocytes (%) (Auto) 8.5 % (9.0-44.0) Neutrophils # (Auto) 8.9 TH/MM3 (1.8-7.7) Lymphocytes # (Auto) 0.9 TH/MM3 (1.0-4.8) Albumin 3.3 GM/DL (3.4-5.0) Calcium Level 7.5 MG/DL (8.5-10.1) 8.0 MG/DL (8.5-10.1) Aspartate Amino Transf (AST/SGOT) 62 U/L (15-37) Total Bilirubin 1.6 MG/DL (0.2-1.0) Potassium Level 2.5 MEQ/L (3.5-5.1) 2.6 MEQ/L (3.5-5.1) 3.1 MEQ/L (3.5-5.1) 3.2 MEQ/L (3.5-5.1) Phosphorus Level 1.7 MG/DL (2.5-4.9) Creatinine 0.46 MG/DL (0.60-1.30) Test 12/27/17 04:27 Creatinine 0.44 MG/DL (0.60-1.30) Calcium Level 7.8 MG/DL (8.5-10.1) Sodium Level 135 MEQ/L (136-145) Potassium Level 3.0 MEQ/L (3.5-5.1) Imaging Last Impressions Head CT 12/24/17 0000 Signed Impressions: Service Date/Time: Sunday, December 24, 2017 19:24 - CONCLUSION: 1. No acute intracranial abnormalities. Willard Tang MD PE at Discharge GENERAL: This is a well-nourished, well-developed patient, confused, on restraints CARDIOVASCULAR: Regular rate and rhythm without murmurs, gallops, or rubs. RESPIRATORY: Clear to auscultation. Breath sounds equal bilaterally. No wheezes , rales, or rhonchi. GASTROINTESTINAL: Abdomen soft, non-tender, nondistended. Normal active bowel sounds MUSCULOSKELETAL: Extremities without clubbing, cyanosis, or edema. NEURO: Oriented to person, moving all 4 extremities Pt update on day of discharge Patient doing well. No further confusion or hallucinations. Tolerate potassium diet. Seen out of bed today. Discharge plans discussed with patient , spouse and nursing team Hospital Course This patient is a 72-year-old gentleman with chronic alcoholism who came in with DTs after suddenly stopping both Xanax and alcohol consumption. He did have some hallucinations, tachycardia and was very agitated. He required Ativan as well as Librium and Haldol was given. He did improve. And Corrections admission electrolytes Pt Condition on Discharge: Good Discharge Disposition: Discharge Home Discharge Time: <= 30 minutes Discharge Instructions DIET: Follow Instructions for: As Tolerated, No Restrictions Activities you can perform: Regular-No Restrictions Follow up Referrals: PCP Follow-up - 1 Week New Medications: Multiple Vitamin (Multiple Vitamin) 1 Tab 1 TAB PO DAILY for Nutritional Supplement, #30 TAB 0 Refills Potassium Chloride ER (Potassium Chloride ER) 10 Meq Tab 10 MEQ PO DAILY for Electrolyte Replacement, #30 TAB 0 Refills Chlordiazepoxide HCl (Chlordiazepoxide HCl) 25 Mg Capsule 25 MG PO TID for etoh wd, #15 TAB Patient to take 25 mg 3 times a day for 3 days then 25 mg twice a day for 2 days then 25 mg a day for 2 days then stop Continued Medications: Aspirin (Aspirin Low Dose) 81 Mg Chew 81 MG CHEW DAILY, TAB 0 Refills Atorvastatin (Atorvastatin) 10 Mg Tab 10 MG PO HS for Cholesterol Management, #30 TAB 0 Refills Felodipine ER (Felodipine ER) 5 Mg Agapito 5 MG PO DAILY for Blood Pressure Management, #30 TAB 0 Refills Fluoxetine (Fluoxetine) 20 Mg Capsule 20 MG PO DAILY, #30 CAP 0 Refills Losartan-Hydrochlorothiazide (Losartan-Hydrochlorothiazide) 100-12.5 Mg Tab 1 TAB PO DAILY for Blood Pressure Management, #30 TAB 0 Refills Metoprolol Tartrate (Metoprolol Tartrate) 50 Mg Tab 50 MG PO BID, #60 TAB 0 Refills Rabeprazole (Rabeprazole) 20 Mg Tab 20 MG PO DAILY for Reflux, #30 TAB 0 Refills Timolol Maleate (Ophth) (Timolol Maleate) 0.25 % Romina 1 DROP EACH EYE BID Any Brooks MD Dec 27, 2017 12:13
== END 2017-12-27 13:34 | disposition home or self-care (01) | DRG 897 ==
LOC: PHED 17:36 → PHEDA 19:14 → PHICU 20:51
PROVIDERS: ADMIT Hospitalist; ATTEND Hospitalist
DX: F10.231 Alcohol dependence with withdrawal delirium (principal); R56.9 Unspecified convulsions; F13.20 Sedative, hypnotic or anxiolytic dependence, uncomplicated; E87.1 Hypo-osmolality and hyponatremia; E87.6 Hypokalemia; E83.39 Other disorders of phosphorus metabolism; I10 Essential (primary) hypertension; F41.9 Anxiety disorder, unspecified; G47.30 Sleep apnea, unspecified; Z78.1 Physical restraint status; Z66 Do not resuscitate; Z87.11 Personal history of peptic ulcer disease; Z96.641 Presence of right artificial hip joint; Z96.653 Presence of artificial knee joint, bilateral
CPT/HCPCS: 70450; 80048; 80053; 80307; 81001; 82948; 83735; 84100; 84132; 85025; 87641; 93005; 96361; 96374; J1630; J2060; J3411; J3475; J3480; J7030; J7050

== ENCOUNTER 2018-02-17 18:08 | Inpatient (IN) | payer MEDICARE ==
[~2018-02-17] VITALS: Ht 182.9 cm; Wt 81.6 kg
[~2018-02-17 18:08] MED LIST changes: -ABIL5TAB6 PO; -ACIP20TA19 PO; -AMBI12.5 PO; -ASPI81 PO; +ASPI81CH6 CHEW; +ATOR10TA15 PO; +CHLO25CA9 PO; -FELO2.5T PO; +FELO5TAB PO; +FLUO20CA12 PO; -HYZA100T6 PO; -LOPR50TA12 PO; +LOSA100T3 PO; -LOVA40TA PO; +METO50TA PO; +MULTTAB67 PO; +POTA10TA2 PO; -PRIS100T PO; +RABE1TAB PO; -TAB-TAB PO; +TIMO0.2517 EACH EYE; -TIMO0.5S29 EACH EYE; -TRAZ100 PO; -XANA1TAB PO
[2018-02-17 18:13] VITALS: BP 130/86; PULSE 80; RESP 16; TEMP 98.5; O2SAT 98
[2018-02-17 18:34] VITALS: O2SAT 99
[2018-02-17 18:43] LABS: AUTOMATED NEUTROPHIL # 4.4 TH/MM3 (1.8-7.7); BASOPHIL % 0.5 % (0.0-2.0); EOSINOPHIL # 0.3 TH/MM3 (0-0.4); EOSINOPHIL % 4.2 % (0.0-4.0); HEMATOCRIT 35.9 % (39.0-51.0); HEMOGLOBIN 12.3 GM/DL (13.0-17.0); LYMPH % 20.7 % (9.0-44.0); LYMPHOCYTE # 1.4 TH/MM3 (1.0-4.8); MEAN CELL VOLUME 89.2 FL (80.0-100.0); MEAN CORPUSCULAR HEMOGLOBIN 30.6 PG (27.0-34.0); MEAN CORPUSCULAR HGB CONC 34.3 % (32.0-36.0); MEAN PLATELET VOLUME 8.3 FL (7.0-11.0); MONO % 10.4 % (0.0-8.0); MONOCYTE # 0.7 TH/MM3 (0-0.9); NEUT % 64.2 % (16.0-70.0); PLATELET COUNT 148 TH/MM3 (150-450); RED BLOOD COUNT 4.03 MIL/MM3 (4.50-5.90); RED CELL DISTRIBUTION WIDTH 12.1 % (11.6-17.2); WHITE BLOOD COUNT 6.8 TH/MM3 (4.0-11.0)
[2018-02-17] MEDS ORDERED: SODIUM CHLOR 0.9% 1000 ML INJ 1,000 ML IV ONE (18:45)
--- NOTE | 2018-02-17 18:53 | PD ---
HPI Chief Complaint: Dizziness Time Seen by Provider: 18:31 Travel History International Travel<30 days: No Contact w/Intl Traveler<30days: No Traveled to known affect area: No History of Present Illness HPI Patient is a 73-year-old male presents emergency room with his for evaluation of confusion. As per patient's , she heard patient from the other room talking to himself. Reports that she went to check up on him and noticed that he was confused. Reports that he had an episode of confusion which lasted for 10-15 minutes. Reports at this time, he is back to his baseline mental status. was concerned that patient may have some electrolyte abnormalities as he was recently admitted to the hospital for alcohol withdrawal seizures and with a very low potassium. Reports that patient has not had an alcoholic beverage since his discharge from the hospital. Patient reports that he is feeling well, reports no complaints other than he does feel a little weak. Denies any trauma to his head or neck, denies any fall. Patient denies any chest pain or shortness of breath, denies any abdominal pain PFSH Past Medical History Arthritis: Yes Anxiety: Yes Depression: Yes Cancer: No Cardiac Catheterization: Yes Cardiovascular Problems: Yes (HTN) High Cholesterol: Yes Diabetes: No Diminished Hearing: No Endocrine: No Gastrointestinal Disorders: Yes (GERD) GERD: Yes Genitourinary: No Hepatitis: No Hiatal Hernia: No Hypertension: Yes Immune Disorder: No Implanted Vascular Access Dvce: Yes Medical other: Yes (ALLERGIES, HX OF GLAUCOMA DIAGNOSIS BUT NOW TOLD HE DOESN' T HAVE IT. ) Musculoskeletal: Yes (CHRONIC BACK PAIN) Neurologic: No Psychiatric: Yes (DEPRESSION, ANXIETY) Reproductive: No Respiratory: Yes (sleep apnea, USES CPAP) Sleep Apnea: Yes (CPAP) Thyroid Disease: No Tetanus Vaccination: Unknown Influenza Vaccination: No Past Surgical History Abdominal Surgery: Yes (APPENDECTOMY, INGUINAL HERNIORRHAPHY) AICD: No Appendectomy: Yes Eye Surgery: Yes (MORIAH. RETINAL REPAIR, BILATERAL CATARACT SURGERY) Joint Replacement: Yes (MORIAH. KNEES, RIGHT HIP) Pacemaker: No Tonsillectomy: Yes Other Surgery: Yes Family History Family Hypercholesterolemia: Yes Social History Alcohol Use: Yes ("WEEKENDS") Tobacco Use: No Substance Use: No Allergies-Medications (Allergen,Severity, Reaction): Coded Allergies: adhesive (Unverified Allergy, Severe, BLISTERING, 02/17/18) tree and shrub pollen (Unverified Allergy, Severe, NASAL CONGESTION, ) POLLEN ALLERGY Reported Meds & Prescriptions Reported Meds & Active Scripts Active Potassium Chloride ER (Potassium Chloride) 10 Meq Tab 10 Meq PO DAILY Reported Timolol Maleate (Timolol Maleate (Ophth)) 0.25 % Romina 1 Drop EACH EYE BID Aspirin Low Dose (Aspirin) 81 Mg Chew 81 Mg CHEW DAILY Felodipine ER (Felodipine) 5 Mg Agapito 5 Mg PO DAILY Rabeprazole (Rabeprazole Sodium) 20 Mg Tab 20 Mg PO DAILY Losartan-Hydrochlorothiazide 100-12.5 Mg Tab 1 Tab PO DAILY Fluoxetine (Fluoxetine HCl) 20 Mg Capsule 20 Mg PO DAILY Metoprolol Tartrate 50 Mg Tab 50 Mg PO BID Atorvastatin (Atorvastatin Calcium) 10 Mg Tab 10 Mg PO HS Review of Systems ROS Limitations: Altered Mental Status General / Constitutional: No: Fever Eyes: No: Visual changes HENT: No: Headaches Cardiovascular: No: Chest Pain or Discomfort Respiratory: No: Shortness of Breath Gastrointestinal: No: Abdominal Pain Genitourinary: No: Dysuria Musculoskeletal: No: Pain Skin: No Rash Neurologic: No: Weakness Psychiatric: No: Depression Endocrine: No: Polydipsia Hematologic/Lymphatic: No: Easy Bruising Physical Exam Narrative GENERAL: No acute distress SKIN: Focused skin assessment warm/dry. HEAD: Atraumatic. Normocephalic. EYES: Pupils equal and round. No scleral icterus. No injection or drainage. ENT: No nasal bleeding or discharge. Mucous membranes pink and moist. NECK: Trachea midline. No JVD. CARDIOVASCULAR: Regular rate and rhythm. No murmur appreciated. RESPIRATORY: No accessory muscle use. Clear to auscultation. Breath sounds equal bilaterally. GASTROINTESTINAL: Abdomen soft, non-tender, nondistended. Hepatic and splenic margins not palpable. MUSCULOSKELETAL: No obvious deformities. No clubbing. No cyanosis. No edema. NEUROLOGICAL: Awake and alert. No obvious cranial nerve deficits. Motor grossly within normal limits. Normal speech. Cranial nerves II-12 grossly intact without any neurological deficits PSYCHIATRIC: Appropriate mood and affect; insight and judgment normal. Data Data Last Documented VS Vital Signs Date Time Temp Pulse Resp B/P (MAP) Pulse Ox O2 Delivery O2 Flow Rate FiO2 02/17/18 19:45 69 20 97 4/12/18 18:34 Room Air 02/17/18 18:13 98.5 130/86 (101) Orders Orders Oximetry (02/17/18 18:21) Iv Access Insert/Monitor (02/17/18 18:21) Ecg Monitoring (02/17/18 18:21) Oxygen Administration (02/17/18 18:21) Basic Metabolic Panel (Bmp) (02/17/18 18:21) Complete Blood Count With Diff (02/17/18 18:21) Electrocardiogram (02/17/18 18:39) Drug Screen, Random Urine (02/17/18 18:39) Sodium Chlor 0.9% 1000 Ml Inj (Ns 1000 M (02/17/18 18:45) Alcohol (Ethanol) (02/17/18 18:33) Potassium Chloride (Kcl) (02/17/18 19:15) Potassium Chlor 20 Meq Premix (Kcl 20 Me (02/17/18 19:15) Labs Laboratory Tests Test 02/17/18 18:33 02/17/18 18:45 White Blood Count 6.8 TH/MM3 Red Blood Count 4.03 MIL/MM3 Hemoglobin 12.3 GM/DL Hematocrit 35.9 % Mean Corpuscular Volume 89.2 FL Mean Corpuscular Hemoglobin 30.6 PG Mean Corpuscular Hemoglobin Concent 34.3 % Red Cell Distribution Width 12.1 % Platelet Count 148 TH/MM3 Mean Platelet Volume 8.3 FL Neutrophils (%) (Auto) 64.2 % Lymphocytes (%) (Auto) 20.7 % Monocytes (%) (Auto) 10.4 % Eosinophils (%) (Auto) 4.2 % Basophils (%) (Auto) 0.5 % Neutrophils # (Auto) 4.4 TH/MM3 Lymphocytes # (Auto) 1.4 TH/MM3 Monocytes # (Auto) 0.7 TH/MM3 Eosinophils # (Auto) 0.3 TH/MM3 Basophils # (Auto) 0.0 TH/MM3 CBC Comment DIFF FINAL Differential Comment Blood Urea Nitrogen 19 MG/DL Creatinine 0.78 MG/DL Random Glucose 87 MG/DL Calcium Level 8.1 MG/DL Sodium Level 141 MEQ/L Potassium Level 2.7 MEQ/L Chloride Level 104 MEQ/L Carbon Dioxide Level 29.5 MEQ/L Anion Gap 8 MEQ/L Estimat Glomerular Filtration Rate 97 ML/MIN Ethyl Alcohol Level LESS THAN 3 MG/DL Urine Opiates Screen NEG Urine Barbiturates Screen NEG Urine Amphetamines Screen NEG Urine Benzodiazepines Screen NEG Urine Cocaine Screen NEG Urine Cannabinoids Screen NEG MDM Medical Decision Making Medical Screen Exam Complete: Yes Emergency Medical Condition: Yes Medical Record Reviewed: Yes Interpretation(s) EKG at 1907: NSR at 66bpm, qt/qtc: 407/421, rbbb, no change when compared to previous ekg's Vital Signs Date Time Temp Pulse Resp B/P (MAP) Pulse Ox O2 Delivery O2 Flow Rate FiO2 02/17/18 18:34 99 Room Air 02/17/18 18:34 99 Room Air 02/17/18 18:15 97 Room Air 02/17/18 18:13 98.5 80 16 130/86 (101) 98 Differential Diagnosis Electrolyte abnormality, possible alcohol abuse with delirium Narrative Course 73-year-old male who presents the emergency room with his for evaluation of an episode of confusion which lasted 10-15 minutes today. Reports that patient is back to his normal self at this time, patient with only complaints as some weakness. Patient was recently admitted to the hospital for hypokalemia as well as delirium secondary to alcohol withdrawal. Patient reports that he has not had an alcoholic beverage since his discharge from the hospital. During the course of the patients emergency department visit, the patients history, examination, and differential diagnosis were reviewed with the patient. The patient was placed on a quality assurance monitor final with oximetry and frequent blood pressure monitoring. The patient had an IV access obtained and blood work sent for analysis. The patient was initially provided IV fluids The patients laboratory studies were reviewed and remarkable for: CBC & BMP Diagram 02/17/18 18:33 Calcium Level 8.1 L Potassium 2.7, patient given oral potassium as well as IV potassium, plan to obs for monitoring Diagnosis Primary Impression: Hypokalemia Admitting Information Admitting Physician Requests: Observation Radha Simeon DO Feb 17, 2018 18:53
[2018-02-17 19:03] LABS: BICARBONATE 29.5 MEQ/L (21.0-32.0); BLOOD UREA NITROGEN 19 MG/DL (7-18); CALCIUM 8.1 MG/DL (8.5-10.1); CHLORIDE 104 MEQ/L (98-107); CREATININE 0.78 MG/DL (0.60-1.30); GLOMERULAR FILTRATION RATE 97 ML/MIN (>89); GLUCOSE,RANDOM 87 MG/DL (74-106); SODIUM (NA) 141 MEQ/L (136-145)
[2018-02-17] MEDS ORDERED: POTASSIUM CHLORIDE 10 MEQ CONTROLLED RELEASE TAB PO ONE (19:15)
[2018-02-17] MEDS: POTASSIUM CHLOR 20 MEQ PREMIX 100 ML IV SCH ×2 (19:36→21:15)
[2018-02-17 20:00] VITALS: BP 142/82; PULSE 70; RESP 20; O2SAT 96
[2018-02-17] MEDS ORDERED: MAGNESIUM HYDROXIDE SUSP 30 ML CUP PO PRN (20:30)
[2018-02-17] MEDS ORDERED: SODIUM CHLORIDE 0.9% FLUSH 10 ML FLUSH IV FLUSH PRN (20:30)
[2018-02-17] MEDS ORDERED: NALOXONE HCL 0.4 MG/ML AMP IV PUSH PRN (20:30)
[2018-02-17] MEDS ORDERED: LACTULOSE SYRUP 20 GM/30 ML CUP PO PRN (20:30)
[2018-02-17] MEDS ORDERED: SENNOSIDES 8.6 MG TAB PO PRN (20:30)
[2018-02-17] MEDS ORDERED: BISACODYL 10 MG SUPP RECTAL PRN (20:30)
[2018-02-17] MEDS ORDERED: ONDANSETRON HCL 4 MG/2 ML VIAL IVP PRN (20:30)
[2018-02-17] MEDS ORDERED: ACETAMINOPHEN 325 MG TAB PO PRN (20:30)
[2018-02-17] MEDS: SODIUM CHLORIDE 0.9% FLUSH 10 ML FLUSH IV FLUSH SCH (21:00)
[2018-02-17] MEDS: DOCUSATE SODIUM 50 MG/SENNA 8.6 MG TAB PO SCH (21:28)
[2018-02-17] MEDS: D5-1/2 NS + KCL 20 MEQ INJ 1,000 ML IV SCH (21:28)
[2018-02-17] MEDS: HEPARIN SODIUM - SQ 10,000 UNITS/ML VIAL SQ SCH (21:28)
[2018-02-17 21:30] VITALS: BP 147/81
[2018-02-17 21:45] VITALS: BP 147/81; PULSE 72; RESP 20; TEMP 96; O2SAT 95
[2018-02-18] VITALS (7 sets, daily range): BP systolic 113–160; BP diastolic 74–92; PULSE 63–75; RESP 16–20; TEMP 96.2–98; O2SAT 95–97
[2018-02-18 06:32] LABS: AUTOMATED NEUTROPHIL # 3.5 TH/MM3 (1.8-7.7); BASOPHIL % 0.4 % (0.0-2.0); EOSINOPHIL # 0.3 TH/MM3 (0-0.4); EOSINOPHIL % 4.9 % (0.0-4.0); HEMATOCRIT 38.9 % (39.0-51.0); HEMOGLOBIN 13.1 GM/DL (13.0-17.0); LYMPH % 21.5 % (9.0-44.0); LYMPHOCYTE # 1.2 TH/MM3 (1.0-4.8); MEAN CELL VOLUME 89.6 FL (80.0-100.0); MEAN CORPUSCULAR HEMOGLOBIN 30.1 PG (27.0-34.0); MEAN CORPUSCULAR HGB CONC 33.6 % (32.0-36.0); MEAN PLATELET VOLUME 8.7 FL (7.0-11.0); MONO % 8.2 % (0.0-8.0); MONOCYTE # 0.4 TH/MM3 (0-0.9); PLATELET COUNT 148 TH/MM3 (150-450); RED BLOOD COUNT 4.34 MIL/MM3 (4.50-5.90); RED CELL DISTRIBUTION WIDTH 11.8 % (11.6-17.2); WHITE BLOOD COUNT 5.4 TH/MM3 (4.0-11.0)
[2018-02-18 06:40] LABS: CALCIUM 8.5 MG/DL (8.5-10.1)
[2018-02-18 06:41] LABS: BICARBONATE 27.2 MEQ/L (21.0-32.0)
[2018-02-18 06:44] LABS: CREATININE 0.63 MG/DL (0.60-1.30)
[2018-02-18] MEDS: D5-1/2 NS + KCL 20 MEQ INJ 1,000 ML IV SCH ×2 (07:53→16:50)
[2018-02-18] MEDS: SODIUM CHLORIDE 0.9% FLUSH 10 ML FLUSH IV FLUSH SCH ×2 (08:51→20:56)
[2018-02-18] MEDS ORDERED: POTASSIUM CHLORIDE 10 MEQ CONTROLLED RELEASE TAB PO SCH (09:00)
[2018-02-18] MEDS ORDERED: LOSARTAN 50 MG TAB PO SCH (09:00)
[2018-02-18] MEDS ORDERED: ASPIRIN 81 MG CHEW TAB CHEW SCH (09:00)
[2018-02-18] MEDS ORDERED: FLUoxetine HCL 20 MG CAP PO SCH (09:00)
[2018-02-18] MEDS ORDERED: POTASSIUM CHLORIDE 25 MEQ EFFERVESCENT TAB NG SCH (09:00)
[2018-02-18] MEDS: METOPROLOL TARTRATE 50 MG TAB PO SCH ×2 (09:10→20:55)
[2018-02-18] MEDS: DOCUSATE SODIUM 50 MG/SENNA 8.6 MG TAB PO SCH ×2 (09:10→20:55)
[2018-02-18] MEDS: HEPARIN SODIUM - SQ 10,000 UNITS/ML VIAL SQ SCH ×2 (09:11→20:56)
--- NOTE | 2018-02-18 11:10 | HHI.HP ---
[facility] Brent Green MD Admission Diagnosis Hypokalemia Diagnoses: (1) Amnesia Diagnosis: Principal (2) Confusion Diagnosis: Principal (3) Hypokalemia Diagnosis: Principal Chief Complaint: "Blackout" Travel History International Travel<30 Days: No Contact w/Intl Traveler <30 Da: No Traveled to Known Affected Are: No History of Present Illness 73-year-old male with known history of hypertension, hyperlipidemia, coronary disease, gastric ulcer reflux, anxiety, history of alcohol abuse who presented to the emergency department because of "blackout". Patient indicates that he was in his normal state of health until yesterday when he states that he had an episode that he blacked out. He cannot remember anything during that time for approximately 10-15 minutes. When his found him he was confused was having left hand tremors as well as he cannot open his right eye. They called 911 and he was brought to the emergency department. By the time he arrived to the emergency department his symptoms had completely resolved. He is no longer experiencing any weakness, tremors or confusion. Patient had workup done emergency department and found to have low potassium level and was recommended observation for evaluation. Patient did not indicate any speech difficulties, difficulty eating or swallowing food, ambulation difficulties. Patient does take a baby aspirin on a daily basis. Patient has had episodes similar to this with seizures associated with alcohol withdrawal. However patient states that he has not drank any alcohol since December. Drug screen and ethyl alcohol levels were unremarkable in the ER. Review of Systems Neurologic: COMPLAINS OF: Localized weakness Psychiatric: COMPLAINS OF: Anxiety, Confusion Except as stated in HPI: all other systems reviewed are Neg Past Family Social History Past Medical History Hypertension Hyperlipidemia Coronary artery disease Gastric acid reflux Anxiety History of alcohol abuse History of alcohol-related seizures Past Surgical History Cardiac catheterization Bilateral knee replacement Right hip replacement Left shoulder rotator cuff surgery Right inguinal hernia repair Appendectomy Cataract surgery Bilateral retinal repair Reported Medications Reported Meds & Active Scripts Active Potassium Chloride ER (Potassium Chloride) 10 Meq Tab 10 Meq PO DAILY Reported Timolol Maleate (Timolol Maleate (Ophth)) 0.25 % Romina 1 Drop EACH EYE BID Aspirin Low Dose (Aspirin) 81 Mg Chew 81 Mg CHEW DAILY Felodipine ER (Felodipine) 5 Mg Agapito 5 Mg PO DAILY Rabeprazole (Rabeprazole Sodium) 20 Mg Tab 20 Mg PO DAILY Losartan-Hydrochlorothiazide 100-12.5 Mg Tab 1 Tab PO DAILY Fluoxetine (Fluoxetine HCl) 20 Mg Capsule 20 Mg PO DAILY Metoprolol Tartrate 50 Mg Tab 50 Mg PO BID Atorvastatin (Atorvastatin Calcium) 10 Mg Tab 10 Mg PO HS Allergies: Coded Allergies: adhesive (Unverified Allergy, Severe, BLISTERING, 02/17/18) tree and shrub pollen (Unverified Allergy, Severe, NASAL CONGESTION, ) POLLEN ALLERGY Family History Reviewed and significant for both her mother and father in their 90s, brother at age 75 from myocardial infarction Social History Patient quit drinking alcohol in December. He quit smoking cigarettes any years ago. Prior to that he smoked 5 cigarettes a day since he was 33 years old. Patient denies any illicit drug Physical Exam Vital Signs Vital Signs Date Time Temp Pulse Resp B/P (MAP) Pulse Ox O2 Delivery O2 Flow Rate FiO2 02/18/18 08:00 97.9 73 18 113/74 (87) 97 02/17/18 21:45 96.0 72 20 147/81 (103) 95 02/17/18 21:30 72 20 147/81 (103) 98 02/17/18 20:00 70 20 142/82 (102) 96 02/17/18 19:45 69 20 97 02/17/18 18:34 99 Room Air 02/17/18 18:34 99 Room Air 02/17/18 18:15 97 Room Air 02/17/18 18:13 98.5 80 16 130/86 (101) 98 Physical Exam GENERAL: Well-developed, well-nourished, in no acute distress. alert and orientated HEENT: Head is normocephalic without any lesions or masses noted. Facial features are symmetric. Eyes: Pupils equal round reactive to light. Extraocular muscles are intact. Conjunctivae were clear. Oropharyngeal: Pharynx without any erythema edema. Tongue is midline without deviation. Buccal mucosa is moist without any masses or lesions NECK: Supple without any masses. Trachea midline no deviation. No JVD, no bruits are appreciated CARDIAC: Regular rhythm, regular rate. S1/S2 are heard. No murmurs gallops or rubs. LUNGS: Clear to auscultation bilaterally. No wheeze, rhonchi or rales. No use of accessory muscles on inspiration or expiration. ABDOMEN: Soft, nontender. Nondistended. Bowel sounds heard in all 4 quadrants. No organomegaly or masses. Negative rebound, negative guarding EXTREMITIES: No edema, pulses are equal bilaterally. No cyanosis or clubbing NEUROLOGY: Mood and affect appear appropriate. Cranial nerves II through XII grossly intact. Muscle strength 5/5 in upper and lower extremities bilaterally. Deep tendon reflexes are 2+ in upper and lower extremities bilaterally. Laboratory Laboratory Tests Test 02/17/18 18:33 02/17/18 18:45 02/18/18 05:10 White Blood Count 6.8 5.4 Red Blood Count 4.03 4.34 Hemoglobin 12.3 13.1 Hematocrit 35.9 38.9 Mean Corpuscular Volume 89.2 89.6 Mean Corpuscular Hemoglobin 30.6 30.1 Mean Corpuscular Hemoglobin Concent 34.3 33.6 Red Cell Distribution Width 12.1 11.8 Platelet Count 148 148 Mean Platelet Volume 8.3 8.7 Neutrophils (%) (Auto) 64.2 65.0 Lymphocytes (%) (Auto) 20.7 21.5 Monocytes (%) (Auto) 10.4 8.2 Eosinophils (%) (Auto) 4.2 4.9 Basophils (%) (Auto) 0.5 0.4 Neutrophils # (Auto) 4.4 3.5 Lymphocytes # (Auto) 1.4 1.2 Monocytes # (Auto) 0.7 0.4 Eosinophils # (Auto) 0.3 0.3 Basophils # (Auto) 0.0 0.0 CBC Comment DIFF FINAL DIFF FINAL Differential Comment Blood Urea Nitrogen 19 11 Creatinine 0.78 0.63 Random Glucose 87 89 Calcium Level 8.1 8.5 Sodium Level 141 139 Potassium Level 2.7 3.0 Chloride Level 104 105 Carbon Dioxide Level 29.5 27.2 Anion Gap 8 7 Estimat Glomerular Filtration Rate 97 124 Ethyl Alcohol Level LESS THAN 3 Urine Opiates Screen NEG Urine Barbiturates Screen NEG Urine Amphetamines Screen NEG Urine Benzodiazepines Screen NEG Urine Cocaine Screen NEG Urine Cannabinoids Screen NEG Result Diagram: 02/18/1850902/18/1810 Caprini VTE Risk Assessment Caprini VTE Risk Assessment: Mod/High Risk (score >= 2) Caprini Risk Assessment Model Point Value = 1 Point Value = 2 Point Value = 3 Point Value = 5 Age 41-60 Minor surgery BMI > 25 kg/m2 Swollen legs Varicose veins or History of unexplained or recurrent spontaneous Oral contraceptives or hormone replacement Sepsis (< 1 month) Serious lung disease, including pneumonia (< 1 month) Abnormal pulmonary function Acute myocardial infarction Congestive heart failure (< 1 month) History of inflammatory bowel disease Medical patient at bed rest Age 61-74 Arthroscopic surgery Major open surgery (> 45 min) Laparoscopic surgery (> 45 min) Malignancy Confined to bed (> 72 hours) Immobilizing plaster cast Central venous access Age >= 75 History of VTE Family history of VTE Factor V Leiden Prothrombin [id number] Lupus anticoagulant Anticardiolipin antibodies Elevated serum homocysteine Heparin-induced thrombocytopenia Other congenital or acquired thrombophilia Stroke (< 1 month) Elective arthroplasty Hip, pelvis, or leg fracture Acute spinal cord injury (< 1 month) Prophylaxis Regimen Total Risk Factor Score Risk Level Prophylaxis Regimen 0-1 Low Early ambulation 2 Moderate Order ONE of the following: *Sequential Compression Device (SCD) *Heparin 5000 units SQ BID 3-4 Higher Order ONE of the following medications: *Heparin 5000 units SQ TID *Enoxaparin/Lovenox 40 mg SQ daily (WT < 150 kg, CrCl > 30 mL/min) *Enoxaparin/Lovenox 30 mg SQ daily (WT < 150 kg, CrCl > 10-29 mL/min) *Enoxaparin/Lovenox 30 mg SQ BID (WT < 150 kg, CrCl > 30 mL/min) AND/OR *Sequential Compression Device (SCD) 5 or more Highest Order ONE of the following medications: *Heparin 5000 units SQ TID (Preferred with Epidurals) *Enoxaparin/Lovenox 40 mg SQ daily (WT < 150 kg, CrCl > 30 mL/min) *Enoxaparin/Lovenox 30 mg SQ daily (WT < 150 kg, CrCl > 10-29 mL/min) *Enoxaparin/Lovenox 30 mg SQ BID (WT < 150 kg, CrCl > 30 mL/min) AND *Sequential Compression Device (SCD) Assessment and Plan Assessment and Plan Amnesia, confusion, neurological symptoms with left arm tremor and unable to open the right eye Patient will need to have further workup to rule out TIA versus CVA CT scan of the brain did not indicate any acute abnormality Will need to check MRI, MRA of the brain, carotid ultrasound, echocardiogram , EEG Get PT/OT/ST evaluations Obtain additional laboratory studies to include glycohemoglobin, lipid panel , B12, folate, sed rate, RPR Consult neurology for further recommendations Will increase to full dose aspirin Hypokalemia Will continue monitor and replete as needed Will hold hydrochlorothiazide Continue home potassium replacement Hypertension, hyperlipidemia, coronary artery disease Continue home medications Anxiety Continue home medications DVT prevention Sequential compression devices Mckay Schmidt Feb 18, 2018 11:10
--- NOTE | 2018-02-18 11:15 | RADRPT ---
EXAM DATE/TIME: 02/18/2018 10:27 [facility] COMPARISON: No previous studies available for comparison. INDICATIONS : Cerebrovascular accident. MEDICAL HISTORY : Hypercholesterolemia. Hypertension. Gastroesophageal reflux disease. Arthritis. SURGICAL HISTORY : Tonsillectomy. Appendectomy. Eye surgery. Inguinal hernia repair. Bilateral femur fracture repair. Bilateral knee surgery. Right hip replacement. Right rotator cuff repair. ENCOUNTER: Initial ACUITY: 1 day PAIN SCORE: 0/10 LOCATION: Bilateral neck PEAK SYSTOLIC VELOCITIES (cm/sec): ICA/CCA RATIO: Right: 1.1 Left: 0.8 ICA: Right: 68 Left: 64 CCA: Right: 65 Left: 82 ECA: Right: 80 Left: 72 VERTEBRAL: Right: 43 antegrade Left: 54 antegrade Elevated flow velocities and ICA/CCA ratios have been found to correlate with increased degrees of vessel stenosis, calculated as percentage of diameter relative to a normal segment of distal ICA/CCA FINDINGS: RIGHT CAROTID: No significant stenosis is visualized. The waveforms are within normal limits. LEFT CAROTID: No significant stenosis is visualized. The waveforms are within normal limits. VERTEBRAL ARTERIES: Antegrade flow is seen in both vertebral arteries. MISCELLANEOUS: None. CONCLUSION: Negative for hemodynamically significant stenosis.. Forest Maurer MD FACR on February 18, 2018 at 11:12 Board Certified Radiologist. This report was verified electronically.
--- NOTE | 2018-02-18 12:22 | RADRPT ---
EXAM DATE/TIME: 02/18/2018 11:53 [facility] COMPARISON: No previous studies available for comparison. INDICATIONS : Confusion. MEDICAL HISTORY : Hypertension. SURGICAL HISTORY : Total knee replacement, left. Total knee replacement, right. Appendectomy. rotator cuff, inguinal her don. ENCOUNTER: Initial ACUITY: 1 day PAIN SCORE: 0/10 LOCATION: cranial TECHNIQUE: Multiplanar, multisequence MRI of the brain was performed without contrast. FINDINGS: CEREBRUM: Moderate diffuse cervical atrophy. The ventricles are normal for degree of atrophy. No evidence of m idline shift, mass lesion, hemorrhage or acute infarction. No extraaxial fluid collections are seen. The pituitary gland and suprasellar cistern are normal in configuration. WHITE MATTER: Mild periventricular and scattered deep white matter focal T2 prolongation. POSTERIOR FOSSA: The cerebellum and brainstem are intact. The 4th ventricle is midline. The cerebellopontine angle is unremarkable. The cerebellar tonsils are normal in position. DIFFUSION IMAGING: No focal areas of restricted diffusion are seen. No evidence of acute infarction. EXTRACRANIAL: The visualized portions of the orbits and paranasal sinuses are unremarkable. CONCLUSION: 1. Senescent changes with mild small vessel periventricular ischemic white matter demyelination. 2. No acute abnormality. Specifically, no acute infarction, mass or hemorrhage. Kiet Jeronimo MD on February 18, 2018 at 12:18 Board Certified Radiologist. This report was verified electronically.
--- NOTE | 2018-02-18 12:23 | RADRPT ---
EXAM DATE/TIME: 02/18/2018 11:53 [facility] COMPARISON: No previous studies available for comparison. INDICATIONS : Confusion. MEDICAL HISTORY : Hypertension. SURGICAL HISTORY : Total knee replacement, left. Total knee replacement, right. Appendectomy. rotator cuff, inguinal her don. ENCOUNTER: Initial ACUITY: 1 day PAIN SCORE: 0/10 LOCATION: cranial Please note a normal MRA of the brain does not entirely exclude the possibility of a small aneurysm, nor the possibility of distal intracranial vessel disease. TECHNIQUE: 3D time of flight MRA was performed. Source images, multiplanar STS MIP, and 3D volume MIP reconstru ctions were reviewed. FINDINGS: Anterior circulation: Distal intracranial internal carotid arteries are patent with flow extending to the middle and anteri or cerebral arteries. There is no evidence for aneurysm, vessel truncation or stenosis, and no eviden ce for vascular malformation. Posterior circulation: Symmetric distal vertebral arteries with flow extending to basilar artery. Posterior communicating a rteries are patent bilaterally. There is no evidence for aneurysm, vessel truncation or stenosis, and no evidence for vascular malformation. CONCLUSION: 1. Unremarkable MRA examination of the [place] of [place]. Kiet Jeronimo MD on February 18, 2018 at 12:20 Board Certified Radiologist. This report was verified electronically.
[2018-02-18] MEDS: TIMOLOL MALEATE 0.25% OPHT SOLN 5 ML BTL EACH EYE SCH ×2 (13:21→20:56)
[2018-02-18 14:06] LABS: FOLATE GREATER THAN 20.0 NG/ML (3.1-17.5)
--- NOTE | 2018-02-18 16:35 | PD.CONS ---
History of Present Illness Service Neurology Consult Requested By medical Reason for Consult tia/confusion Primary Care Physician Brent Green MD History of Present Illness 73-year-old m admitted for confusional episode. suddenly became confused, didn' t recognize his dog, had mild tremors per spouse, was speaking but not making sense at times. she did not observe any weakness. he does not recollect all the events. ct brain naicp. glucose 80's. na, ca nml. k 2.7. tsh nml hx of etoh-withdrawal sz, but has not had etoh x 2 months. no hx of tia/stroke. takes aspirin daily. Review of Systems Except as stated in HPI: all other systems reviewed are Neg Past Family Social History Past Medical History Hypertension Hyperlipidemia Coronary artery disease Gastric acid reflux Anxiety History of alcohol abuse History of alcohol-related seizures Past Surgical History Cardiac catheterization Bilateral knee replacement Right hip replacement Left shoulder rotator cuff surgery Right inguinal hernia repair Appendectomy Cataract surgery Bilateral retinal repair Reported Medications Reported Meds & Active Scripts Active Potassium Chloride ER (Potassium Chloride) 10 Meq Tab 10 Meq PO DAILY Reported Timolol Maleate (Timolol Maleate (Ophth)) 0.25 % Romina 1 Drop EACH EYE BID Aspirin Low Dose (Aspirin) 81 Mg Chew 81 Mg CHEW DAILY Felodipine ER (Felodipine) 5 Mg Agapito 5 Mg PO DAILY Rabeprazole (Rabeprazole Sodium) 20 Mg Tab 20 Mg PO DAILY Losartan-Hydrochlorothiazide 100-12.5 Mg Tab 1 Tab PO DAILY Fluoxetine (Fluoxetine HCl) 20 Mg Capsule 20 Mg PO DAILY Metoprolol Tartrate 50 Mg Tab 50 Mg PO BID Atorvastatin (Atorvastatin Calcium) 10 Mg Tab 10 Mg PO HS Allergies: Coded Allergies: adhesive (Unverified Allergy, Severe, BLISTERING, 02/17/18) tree and shrub pollen (Unverified Allergy, Severe, NASAL CONGESTION, ) POLLEN ALLERGY Family History +myocardial infarction no sz hx Social History Patient quit drinking alcohol in December. He quit smoking cigarettes years ago. Patient denies any illicit drug Review of Systems All other ROS: ROS reviewed as documented in chart Past Family Social History Allergies: Coded Allergies: adhesive (Unverified Allergy, Severe, BLISTERING, 02/17/18) tree and shrub pollen (Unverified Allergy, Severe, NASAL CONGESTION, ) POLLEN ALLERGY Active Ordered Medications Current Medications Medications (Trade) Dose Ordered Sig/Sergo Route Start Time Stop Time Status Last Admin Potassium Chloride/Dextrose/ Sod Cl 1,000 ml @ 100 mls/hr Q10H IV 02/17/18 20:23 02/18/18 07:53 (NS Flush) 2 ml UNSCH PRN IV FLUSH 02/17/18 20:30 (NS Flush) 2 ml BID IV FLUSH 02/17/18 21:00 (Tylenol) 650 mg Q4H PRN PO 02/17/18 20:30 (Zofran Inj) 4 mg Q6H PRN IVP 02/17/18 20:30 (Heparin Inj) 5,000 units Q12H SQ 02/17/18 21:00 02/18/18 09:11 (Narcan Inj) 0.4 mg UNSCH PRN IV PUSH 02/17/18 20:30 (Sujata-Colace) 1 tab BID PO 02/17/18 21:00 02/18/18 09:10 (Milk Of Magnesia Liq) 30 ml Q12H PRN PO 02/17/18 20:30 (Senokot) 17.2 mg Q12H PRN PO 02/17/18 20:30 (Dulcolax Supp) 10 mg DAILY PRN RECTAL 02/17/18 20:30 (Lactulose Liq) 30 ml DAILY PRN PO 02/17/18 20:30 (Lipitor) 10 mg HS PO 02/18/18 21:00 (PROzac) 20 mg DAILY PO 02/18/18 09:00 02/18/18 09:10 (Lopressor) 50 mg BID PO 02/18/18 09:00 02/18/18 09:10 (Timoptic 0.25% Opth Soln) 1 drop BID EACH EYE 02/18/18 09:00 02/18/18 13:21 (Cozaar) 100 mg DAILY PO 02/18/18 09:00 02/18/18 09:10 (K-Lyte Cl Eff) 50 meq DAILY NG 02/18/18 09:00 02/18/18 09:09 (KCl) 10 meq DAILY PO 02/18/18 09:00 02/18/18 09:10 (Aspirin) 325 mg DAILY PO 02/19/18 09:00 Exam I&O / VS 4/02/18/18 02/19/18 15:00 23:00 07:00 Output Total 1100 ml Balance -1100 ml Output Urine Total 1100 ml # Bowel Movements 0 Vital Signs Date Time Temp Pulse Resp B/P (MAP) Pulse Ox O2 Delivery O2 Flow Rate FiO2 02/18/18 15:38 95 21 02/18/18 12:00 97.3 70 18 150/81 (104) 95 02/18/18 08:00 97.9 73 18 113/74 (87) 97 02/17/18 21:45 96.0 72 20 147/81 (103) 95 02/17/18 21:30 72 20 147/81 (103) 98 02/17/18 20:00 70 20 142/82 (102) 96 02/17/18 19:45 69 20 97 02/17/18 18:34 99 Room Air 02/17/18 18:34 99 Room Air 02/17/18 18:15 97 Room Air 02/17/18 18:13 98.5 80 16 130/86 (101) 98 General: Alert and Oriented, No acute distress Eye: EOMI Respiratory: Non-labored respirations Cardiology: Normal rate Musculoskeletal: ROM Neurologic: Alert, Oriented, Normal sensory, Normal motor, No focal defects, CN II-XII intact, Normal DTR's Psychiatric: Cooperative, Appropriate mood & affect, Normal judgement Exam Comments alert, ox 3, no aphasia, pleasant, follows, eomi, vff, no drift Review/Management Diagnosis/Plan: (1) Confusion ICD Codes: R41.0 - Disorientation, unspecified Status: Acute Plan: etiology: complex-partial sz vs tia vs metabolic with low K (although unlikely) hx of etoh withdrawal sz in past mri brain no acute lesion mra brain nml, carotids nml recs change to plavix eeg- pt prefers outpatient can f/u with us in the office and call our office to arrange for eeg should not drive until seen outpatient by us and pcp f/u mag level (2) Amnesia ICD Codes: R41.3 - Other amnesia Status: Acute (3) Hypokalemia ICD Codes: E87.6 - Hypokalemia Status: Acute Lobo Carter MD Feb 18, 2018 16:35
[2018-02-18 16:56] LABS: HEMOGLOBIN A1C 5.1 % (4.3-6.0)
--- NOTE | 2018-02-18 17:19 | ECHRPT ---
Indication: CVA/TIA CONCLUSIONS Normal left ventricular size. Wall thickness is normal. The left ventricular systolic function is normal with an estimated ejection fraction in the range of 50-55%. No definite regional wall motion abnormalit ies. There is mild tricuspid valve regurgitation. The estimated pulmonary arterial pressure is 35 mmHg. Mild mitral valve regurgitation. BP: 113 / 74 HR: 73 Rhythm: Sinus MEASUREMENTS (Male / Female) Normal Values Technical Quality:Fair 2D ECHO LV Diastolic Diameter PLAX 4.9 cm 4.2 - 5.9 / 3.9 - 5.3 cm LV Systolic Diameter PLAX 3.1 cm IVS Diastolic Thickness 1.2 cm 0.6 - 1.0 / 0.6 - 0.9 cm LVPW Diastolic Thickness 1.2 cm 0.6 - 1.0 / 0.6 - 0.9 cm LV Relative Wall Thickness 0.5 RV Internal Dim ED PLAX 2.8 cm LVOT Diameter 2.2 cm Aortic Root Diameter 3.8 cm LA Systolic Diameter LX 3.4 cm 3.0 - 4.0 / 2.7 - 3.8 cm M-MODE AV Cusp Separation MM 2.3 cm DOPPLER AV Peak Velocity 105.0 cm/s AV Peak Gradient 4.4 mmHg AV Mean Gradient 2.0 mmHg AV Velocity Time Integral 20.0 cm LVOT Peak Velocity 91.0 cm/s LVOT Peak Gradient 3.3 mmHg LVOT Velocity Time Integral 18.9 cm AV Area Cont Eq vti 3.6 cm AV Area Cont Eq pk 3.3 cm Mitral E Point Velocity 58.2 cm/s Mitral A Point Velocity 45.9 cm/s Mitral E to A Ratio 1.3 LV E' Lateral Velocity 6.6 cm/s Mitral E to LV E' Lateral Ratio 8.8 LV E' Septal Velocity 6.7 cm/s Mitral E to LV E' Septal Ratio 8.6 TR Peak Velocity 251.0 cm/s TR Peak Gradient 25.2 mmHg Right Atrial Pressure 10.0 mmHg Pulmonary Artery Systolic Pressu 35.2 mmHg Right Ventricular Systolic Press 35.2 mmHg PV Peak Velocity 39.9 cm/s PV Peak Gradient 0.6 mmHg FINDINGS LEFT VENTRICLE Normal left ventricular size. Wall thickness is normal. The left ventricular systolic function is normal with an estimated ejection fraction in the range of 50-55%. No definite regional wall motion abnormalit ies. RIGHT VENTRICLE Normal right ventricular size and systolic function. LEFT ATRIUM The left atrial size is normal. RIGHT ATRIUM The right atrial size is normal. ATRIAL SEPTUM Normal atrial septal thickness without atrial level shunting by limited color doppler interrogation. AORTA The aortic root and proximal ascending aorta are not well visualized. MITRAL VALVE Mild mitral valve regurgitation. AORTIC VALVE Trileaflet aortic valve. No aortic valve stenosis or regurgitation. TRICUSPID VALVE There is mild tricuspid valve regurgitation. The estimated pulmonary arterial pressure is 35 mmHg. PULMONARY VALVE No pulmonary valve regurgitation or stenosis. VESSELS The inferior vena cava is normal in size. PERICARDIUM No pericardial effusion. All Sr MD (Electronically Signed) Final Date:18 February 2018 17:19
--- NOTE | 2018-02-18 19:53 | EKG ---
Date Performed: 02/17/2018 Time Performed: 19:07:13 PTAGE: 73 years EKG: Sinus rhythm INCOMPLETE RIGHT BUNDLE BRANCH BLOCK BORDERLINE ECG Since the PREVIOUS TRACING , no significant change noted PREVIOUS TRACIN12/24/2017 18.38 DOCTOR: Jose De Jesus Gonzalez Interpretating Date/Time 02/18/2018 19:52:52
[2018-02-18] MEDS ORDERED: ATORVASTATIN 10 MG TAB PO SCH (21:00)
[2018-02-19] VITALS: BP 161/85; PULSE 64; RESP 20; TEMP 96.5; O2SAT 96
[2018-02-19] MEDS: D5-1/2 NS + KCL 20 MEQ INJ 1,000 ML IV SCH (03:06)
[2018-02-19 04:00] VITALS: BP 164/94; PULSE 68; RESP 20; TEMP 97.2; O2SAT 96
[2018-02-19 08:00] VITALS: BP 116/70; PULSE 68; RESP 16; TEMP 97.7; O2SAT 98
[2018-02-19 08:27] VITALS: O2SAT 98
[2018-02-19] MEDS ORDERED: COZA50TA PO (08:34)
[2018-02-19] MEDS ORDERED: PLAV75TA29 PO (08:34)
--- NOTE | 2018-02-19 08:35 | HHI.DCPOC ---
Discharge Care Plan Diagnosis: (1) Amnesia (2) Confusion (3) Hypokalemia Goals to Promote Your Health * To prevent worsening of your condition and complications * To maintain your health at the optimal level Directions to Meet Your Goals Take your medications as prescribed Follow your dietary instruction Follow activity as directed Keep your appointments as scheduled Take your immunizations and boosters as scheduled If your symptoms worsen call your PCP, if no PCP go to Urgent Care Center or Emergency Room Smoking is Dangerous to Your Health. Avoid second hand smoke Call the 24-hour hour crisis hotline for domestic abuse at Mckay Schmidt Feb 19, 2018 08:35
--- NOTE | 2018-02-19 08:39 | HHI.DS ---
Discharge Summary Admission Date Feb 18, 2018 at 13:32 Discharge Date: Feb 19, 2018 Admitting Diagnosis Hypokalemia (1) Amnesia ICD Code: R41.3 - Other amnesia Diagnosis: Principal Status: Acute (2) Confusion ICD Code: R41.0 - Disorientation, unspecified Diagnosis: Principal Status: Acute (3) Hypokalemia ICD Code: E87.6 - Hypokalemia Diagnosis: Principal Status: Acute Procedures ECHOCARDIOGRAM CONCLUSIONS Normal left ventricular size. Wall thickness is normal. The left ventricular systolic function is normal with an estimated ejection fraction in the range of 50-55%. No definite regional wall motion abnormalities. There is mild tricuspid valve regurgitation. The estimated pulmonary arterial pressure is 35 mmHg. Mild mitral valve regurgitation. Brief History - From Admission 73-year-old male with known history of hypertension, hyperlipidemia, coronary disease, gastric ulcer reflux, anxiety, history of alcohol abuse who presented to the emergency department because of "blackout". Patient indicates that he was in his normal state of health until yesterday when he states that he had an episode that he blacked out. He cannot remember anything during that time for approximately 10-15 minutes. When his found him he was confused was having left hand tremors as well as he cannot open his right eye. They called 911 and he was brought to the emergency department. By the time he arrived to the emergency department his symptoms had completely resolved. He is no longer experiencing any weakness, tremors or confusion. Patient had workup done emergency department and found to have low potassium level and was recommended observation for evaluation. Patient did not indicate any speech difficulties, difficulty eating or swallowing food, ambulation difficulties. Patient does take a baby aspirin on a daily basis. Patient has had episodes similar to this with seizures associated with alcohol withdrawal. However patient states that he has not drank any alcohol since December. Drug screen and ethyl alcohol levels were unremarkable in the ER. CBC/BMP: 02/18/18 0510 02/18/18 1355 Significant Findings Laboratory Tests Test 02/17/18 18:33 02/17/18 18:45 02/18/18 05:10 02/18/18 13:55 Red Blood Count 4.03 MIL/MM3 (4.50-5.90) 4.34 MIL/MM3 (4.50-5.90) Hemoglobin 12.3 GM/DL (13.0-17.0) Hematocrit 35.9 % (39.0-51.0) 38.9 % (39.0-51.0) Platelet Count 148 TH/MM3 (150-450) 148 TH/MM3 (150-450) Monocytes (%) (Auto) 10.4 % (0.0-8.0) 8.2 % (0.0-8.0) Eosinophils (%) (Auto) 4.2 % (0.0-4.0) 4.9 % (0.0-4.0) Blood Urea Nitrogen 19 MG/DL (7-18) Calcium Level 8.1 MG/DL (8.5-10.1) Potassium Level 2.7 MEQ/L (3.5-5.1) 3.0 MEQ/L (3.5-5.1) Folate GREATER THAN 20.0 NG/ML Test 02/19/18 06:05 Imaging Last Impressions Head Magnetic Resonance Angiography 02/18/18 0000 Signed Impressions: Service Date/Time: Sunday, February 18, 2018 11:53 - CONCLUSION: 1. Unremarkable MRA examination of the [place] of [place]. Kiet Jeronimo MD Carotid Artery Ultrasound 02/18/18 0000 Signed Impressions: Service Date/Time: Sunday, February 18, 2018 10:27 - CONCLUSION: Negative for hemodynamically significant stenosis.. Forest Maurer MD FACR Brain MRI 02/18/18 0000 Signed Impressions: Service Date/Time: Sunday, February 18, 2018 11:53 - CONCLUSION: 1. Senescent changes with mild small vessel periventricular ischemic white matter demyelination. 2. No acute abnormality. Specifically, no acute infarction, mass or hemorrhage. Kiet Jeronimo MD PE at Discharge GENERAL: Well-developed, well-nourished, in no acute distress. alert and orientated HEENT: Head is normocephalic without any lesions or masses noted. Facial features are symmetric. Eyes: Extraocular muscles are intact. Conjunctivae were clear. NECK: Supple without any masses. Trachea midline no deviation. No JVD, CARDIAC: Regular rhythm, regular rate. S1/S2 are heard. No murmurs gallops or rubs. LUNGS: Clear to auscultation bilaterally. No wheeze, rhonchi or rales. No use of accessory muscles on inspiration or expiration. ABDOMEN: Soft, nontender. Nondistended. Bowel sounds heard in all 4 quadrants. No organomegaly or masses. Negative rebound, negative guarding EXTREMITIES: No edema, pulses are equal bilaterally. No cyanosis or clubbing NEUROLOGY: Mood and affect appear appropriate. Cranial nerves II through XII grossly intact. Moving all extremities, speech is clear Hospital Course 73-year-old male who originally presented to the hospital because of neurological symptoms of amnesia, confusion, unable to open right eye, left upper extremity tremor. Patient had workup done and found to have significant hypokalemia and ER physician recommended admission for further evaluation and management. Patient did undergo full neurological workup with MRI, MRA of the brain which is unremarkable, carotid ultrasound was unremarkable. Echocardiogram as results above. Patient did undergo PT/OT/ST evaluations without any abnormalities or outpatient recommendations. Patient has had EEG performed but is pending at this time. Neurology evaluated the patient and indicating possible TIA versus complex partial seizure versus metabolic with hypokalemia. He recommended changing to Plavix. Indicated no driving until seen by him in his office. Patient is clinically stable no recurrent symptoms. Patient wants to go home. We will plan discharge accordingly. Pt Condition on Discharge: Stable Discharge Disposition: Discharge Home Discharge Time: > 30 minutes Discharge Instructions DIET: Follow Instructions for: Heart Healthy Diet Activities you can perform: Regular-No Restrictions Activities to Avoid: Driving Other Activity Instructions: No driving until seen by neurologist in outpatient setting Follow up Referrals: PCP Follow-up - 1 Week New Medications: Clopidogrel (Plavix) 75 Mg Tab 75 MG PO DAILY for TIA for 30 Days, #30 TAB Losartan (Cozaar) 50 Mg Tab 100 MG PO DAILY for Blood Pressure Management for 30 Days, #60 TAB Continued Medications: Atorvastatin (Atorvastatin) 10 Mg Tab 10 MG PO HS for Cholesterol Management, #30 TAB 0 Refills Felodipine ER (Felodipine ER) 5 Mg Agapito 5 MG PO DAILY for Blood Pressure Management, #30 TAB 0 Refills Fluoxetine (Fluoxetine) 20 Mg Capsule 20 MG PO DAILY, #30 CAP 0 Refills Metoprolol Tartrate (Metoprolol Tartrate) 50 Mg Tab 50 MG PO BID, #60 TAB 0 Refills Rabeprazole (Rabeprazole) 20 Mg Tab 20 MG PO DAILY for Reflux, #30 TAB 0 Refills Timolol Maleate (Ophth) (Timolol Maleate) 0.25 % Romina 1 DROP EACH EYE BID Discontinued Medications: Aspirin (Aspirin Low Dose) 81 Mg Chew 81 MG CHEW DAILY, TAB 0 Refills Losartan-Hydrochlorothiazide (Losartan-Hydrochlorothiazide) 100-12.5 Mg Tab 1 TAB PO DAILY for Blood Pressure Management, #30 TAB 0 Refills Potassium Chloride ER (Potassium Chloride ER) 10 Meq Tab 10 MEQ PO DAILY for Electrolyte Replacement, #30 TAB 0 Refills Mckay Schmidt Feb 19, 2018 08:39
[2018-02-19] MEDS ORDERED: CLOPIDOGREL 75 MG TAB PO SCH (09:00)
[2018-02-19] MEDS ORDERED: ASPIRIN 325 MG TAB PO SCH (09:00)
--- NOTE | 2018-02-19 09:29 | HHI.PR ---
Review/Management Diagnosis/Plan: (1) Confusion ICD Codes: R41.0 - Disorientation, unspecified Status: Acute Plan: etiology: complex-partial sz vs tia vs metabolic with low K (although unlikely) hx of etoh withdrawal sz in past mri brain no acute lesion mra brain nml, carotids nml recs doing well eeg- performed this am. results pending can f/u with us in the officein 1-[address] until seen outpatient by us and pcp (2) Amnesia ICD Codes: R41.3 - Other amnesia Status: Acute (3) Hypokalemia ICD Codes: E87.6 - Hypokalemia Status: Acute Subjective Subjective Comments No acute events reported No headache No chest pain No dyspnea Active Medications Current Medications Medications (Trade) Dose Ordered Sig/Sergo Route Start Time Stop Time Status Last Admin Potassium Chloride/Dextrose/ Sod Cl 1,000 ml @ 100 mls/hr Q10H IV 02/17/18 20:23 02/19/18 03:06 (NS Flush) 2 ml UNSCH PRN IV FLUSH 02/17/18 20:30 (NS Flush) 2 ml BID IV FLUSH 02/17/18 21:00 (Tylenol) 650 mg Q4H PRN PO 02/17/18 20:30 (Zofran Inj) 4 mg Q6H PRN IVP 02/17/18 20:30 (Heparin Inj) 5,000 units Q12H SQ 02/17/18 21:00 02/18/18 09:11 (Narcan Inj) 0.4 mg UNSCH PRN IV PUSH 02/17/18 20:30 (Sujata-Colace) 1 tab BID PO 02/17/18 21:00 02/18/18 20:55 (Milk Of Magnesia Liq) 30 ml Q12H PRN PO 02/17/18 20:30 (Senokot) 17.2 mg Q12H PRN PO 02/17/18 20:30 (Dulcolax Supp) 10 mg DAILY PRN RECTAL 02/17/18 20:30 (Lactulose Liq) 30 ml DAILY PRN PO 02/17/18 20:30 (Lipitor) 10 mg HS PO 02/18/18 21:00 02/18/18 20:55 (PROzac) 20 mg DAILY PO 02/18/18 09:00 02/18/18 09:10 (Lopressor) 50 mg BID PO 02/18/18 09:00 02/18/18 20:55 (Timoptic 0.25% Opth Soln) 1 drop BID EACH EYE 02/18/18 09:00 02/18/18 20:56 (Cozaar) 100 mg DAILY PO 02/18/18 09:00 02/18/18 09:10 (K-Lyte Cl Eff) 50 meq DAILY NG 02/18/18 09:00 02/18/18 09:09 (KCl) 10 meq DAILY PO 02/18/18 09:00 02/18/18 09:10 (Plavix) 75 mg DAILY PO 02/19/18 09:00 Allergies Allergies Coded Allergies adhesive (Unverified Allergy, Severe, BLISTERING, 02/17/18) tree and shrub pollen (Unverified Allergy, Severe, NASAL CONGESTION, 02/17/18) Review of Systems All other ROS: ROS reviewed as documented in chart Exam I&O / VS 02/19/18 02/19/18 02/20/18 15:00 23:00 07:00 Intake Total 250 ml Balance 250 ml Intake Oral 250 ml Vital Signs Date Time Temp Pulse Resp B/P (MAP) Pulse Ox O2 Delivery O2 Flow Rate FiO2 02/19/18 08:27 98 21 02/19/18 08:00 97.7 68 16 116/70 (85) 98 02/19/18 04:00 97.2 68 20 164/94 (117) 96 02/19/18 00:00 96.5 64 20 161/85 (110) 96 02/18/18 23:00 63 02/18/18 20:00 95 21 02/18/18 20:00 96.2 68 20 160/92 (114) 95 02/18/18 16:00 98.0 75 16 152/77 (102) 96 02/18/18 15:38 95 21 02/18/18 15:05 67 02/18/18 12:00 97.3 70 18 150/81 (104) 95 General: Alert and Oriented, No acute distress Eye: EOMI Respiratory: Non-labored respirations Cardiology: Normal rate Musculoskeletal: ROM Neurologic: Alert, Oriented, Normal sensory, Normal motor, No focal defects, CN II-XII intact, Normal DTR's Psychiatric: Cooperative, Appropriate mood & affect, Normal judgement Exam Comments alert, ox 3, no aphasia, pleasant, follows, eomi, vff, no drift Objective Micro and Labs Laboratory Tests Test 02/18/18 13:55 02/19/18 06:05 Potassium Level 3.7 Magnesium Level 2.0 Lobo Carter MD Feb 19, 2018 09:29
[2018-02-19 12:31] LABS: CHOLESTEROL/ HDL RATIO 2.79 RATIO; HDL CHOLESTEROL 50.5 MG/DL (40.0-60.0)
--- NOTE | 2018-02-20 10:05 | MG ---
cc: Lobo Carter MD EEG RECORD #[id number] A 73-year-old with confusion, 8-9 Hz alpha activity, 20-40 microvolts, low-amplitude beta in the frontal channels, good anterior to posterior gradient. Good EEG variability and reactivity. Reasonable driving with photic stimulation. with hyperventilation with buildup, with no obvious lateralizing features. Good EEG variability and reactivity. INTERPRETATION: Normal awake EEG. Clinical correlation. Lobo Carter MD MG/TL/ , 08:26 AM , 08:54 AM
== END 2018-02-19 09:45 | disposition home or self-care (01) | DRG 641 ==
LOC: PHED 18:08 → PHEDA 20:27 → PH3A 21:38 → OBSVTOIN 02-18 13:32
PROVIDERS: ADMIT Hospitalist; ATTEND Hospitalist
DX: E87.6 Hypokalemia (principal); G45.9 Transient cerebral ischemic attack, unspecified; I10 Essential (primary) hypertension; I08.1 Rheumatic disorders of both mitral and tricuspid valves; R41.3 Other amnesia; R41.0 Disorientation, unspecified; R25.1 Tremor, unspecified; E78.5 Hyperlipidemia, unspecified; K21.9 Gastro-esophageal reflux disease without esophagitis; Z79.82 Long term (current) use of aspirin; F41.9 Anxiety disorder, unspecified; I25.10 Atherosclerotic heart disease of native coronary artery without angina pectoris; Z87.891 Personal history of nicotine dependence; Z96.641 Presence of right artificial hip joint; Z96.653 Presence of artificial knee joint, bilateral
CPT/HCPCS: 70544; 70551; 80048; 80061; 80307; 82607; 82746; 83036; 83735; 84132; 84443; 85025; 85652; 86592; 93005; 93306; 93880; 95819; 96365; 96366; 96372; G0378; G8987-GP; G8988-GP; J1644; J3480; J7030